=== PATIENT | female | born 1985 | race Caucasian/White ===

== ENCOUNTER 2016-06-27 10:00 | Emergency (ER) | payer OTHER ==
[2016-06-27 10:20] VITALS: RESP 18
[2016-06-27 11:39] LABS: Basophils # (A) 0.1 k/uL (0-0.2); Basophils % (A) 1 %; CH 31.9; CHCM 34.3; Eosinophils # (A) 0.2 k/uL (0-0.7); Eosinophils % (A) 1 %; HDW 2.87; HGB 14.3 gm/dL (11.4-16.0); Luc # (Auto) 0.42; Luc % (Auto) 4; Lymphocytes # (A) 2.3 k/uL (1.0-4.8); Lymphocytes % (A) 21 %; MCH 31.7 pg (25.0-35.0); MCV 93.3 fL (80.0-100.0); Mean Platelet Volume 7.8; Monocytes # (A) 0.4 k/uL (0-1.0); Monocytes % (A) 3 %; Neutrophils # (A) 7.8 k/uL (1.3-7.7); Neutrophils % (A) 70 %; RDW 14.5 % (11.5-15.5); WBC 11.1 k/uL (3.8-10.6); WBC (Perox) 11.12
[2016-06-27 11:41] LABS: ALT 36 U/L (9-52); AST 30 U/L (14-36); Acetaminophen <10.0 ug/mL; Alcohol <10 mg/dL; Alkaline Phosphatase 72 U/L (38-126); Anion Gap 15 mmol/L; Blood Urea Nitrogen 16 mg/dL (7-17); Calcium 9.9 mg/dL (8.4-10.2); Carbon Dioxide 25 mmol/L (22-30); Chloride 99 mmol/L (98-107); Glucose 134 mg/dL (74-99); Non-African American GFR(MDRD) >60 (>60 ml/min/1.73 sqM); Potassium 4.7 mmol/L (3.5-5.1); Salicylate <1.0 mg/dL; Sodium 139 mmol/L (137-145); Total Bilirubin 0.7 mg/dL (0.2-1.3); Total Protein 7.7 g/dL (6.3-8.2)
--- NOTE | 2016-06-27 18:53 | ED ---
General Adult HPI - General Chief complaint: Psychiatric Symptoms Stated complaint: MENTAL HEALTH PETITION PHP Time Seen by Provider: 06/27/16 10:13 Source: patient, police Mode of arrival: ambulatory Limitations: no limitations - History of Present Illness Initial comments: 31-year-old female presented for psych evaluation. Per the patient's mother who is wishing to petition her, the patient has not been taking her medications for some time including her metformin and other psych medications that are unknown. When she told the patient that she would need to come to the ED she became violent and started threatening to hurt both herself and her mother. Mother states that lately she has been exhibiting internal stimuli and talking to inanimate objects. She further states that she will laugh inappropriately for no apparent reason. She had previously been well controlled on Lamictal(per her mother) but was doing so well that she believes she did not need to be on medications any more. On interviewing the patient she states that she doesn't know why she is here and thinks that this is just for a physical exam, in spite of being brought in the presence of PD. - Related Data Home Medications Medication Instructions Recorded Confirmed Morphine Sulfate [Ms Contin] 30 mg PO BID 02/16/15 06/27/16 Cetirizine HCl [Zyrtec] 10 mg PO DAILY 06/27/16 06/27/16 Cholecalciferol [Vitamin D3] 1,000 unit PO DAILY 06/27/16 06/27/16 metFORMIN HCL [Glucophage] 500 mg PO BID 06/27/16 06/27/16 Allergies Allergy/AdvReac Type Severity Reaction Status Date / Time aripiprazole [From Abilify] Allergy Severe STATES Verified 02/16/15 14:42 UNABLE TO TALK OR CHEW. "SEIZED UP" latex Allergy Unknown Unknown Verified 02/16/15 14:41 Review of Systems ROS Statement: Those systems with pertinent positive or pertinent negative responses have been documented in the HPI. General: Patient denies fever, chills,nausea, or vomiting. HEENT: No visual changes. No eye pain. No nasal symptoms. No dysphagia.No odynophagia. No ENT pain. Cardiac: No chest pain. No palpitations. Pulmonary; No dyspnea. Denies cough GI: No abdominal pain. No diarrhea. No constipation. No bowel habit changes. No melena. No hematochezia. See general. : No dysuria.No hematuria. No hesitancy. No urgency. No renal lithiasis history. Musculoskeletal: No musculoskeletal pain. Orthopedic: Denies fracture history. Integumentary: Denies rash. Denies pruritis. Neurologic: Denies any lateralizing weakness. Denies numbness. Denies tingling. No seizure activity. Denies TIA or CVA. Endocrine: Denies polyuria and polydipsia Heme/Onc: Denies anemia. Denies cancer. Denies adenopathy. Psych: Thoughts of hurting others, loss of hurting self, talking to him and objects, laughing inappropriately, responding to internal stimuli. ROS Other: All systems not noted in ROS Statement are negative. Past Medical History Past Medical History: No Reported History Additional Past Medical History / Comment(s): Patient was born with one kidney History of Any Multi-Drug Resistant Organisms: None Reported Past Surgical History: Cholecystectomy, Tonsillectomy Additional Past Surgical History / Comment(s): foot surgeery which foot unknown Past Anesthesia/Blood Transfusion Reactions: No Reported Reaction Past Psychological History: Schizophrenia Additional Psychological History / Comment(s): patients father had schizophrenia. Patient has never been treated for mental illness Smoking Status: Current every day smoker Past Alcohol Use History: None Reported Past Drug Use History: None Reported Additional Drug Use History / Comment(s): per mother everything. at one point bath salts General Exam Limitations: no limitations General appearance: alert, in no apparent distress, obese Head exam: Present: atraumatic, normocephalic Eye exam: Present: normal appearance, PERRL, EOMI Pupils: Present: normal accommodation. Absent: unequal ENT exam: Present: normal exam, mucous membranes moist Neck exam: Present: normal inspection, full ROM Respiratory exam: Present: normal lung sounds bilaterally. Absent: respiratory distress, wheezes Cardiovascular Exam: Present: regular rate, normal rhythm. Absent: bradycardia , tachycardia GI/Abdominal exam: Present: soft. Absent: distended, tenderness Rectal exam: Present: deferred Extremities exam: Present: normal inspection, full ROM Back exam: Present: normal inspection, full ROM. Absent: tenderness, CVA tenderness (R) Neurological exam: Present: alert, oriented X3, CN II-XII intact. Absent: altered Psychiatric exam: Present: other (Responding to internal stimuli, inappropriate responses to questions, laughing with no apparent etiology, intermittently agitated and non-compliant with requests) Skin exam: Present: warm, dry, intact Course Vital Signs 06/27/16 06/27/16 06/27/16 10:17 14:32 17:49 Temperature 98.1 F 98.4 F Pulse Rate 117 H 98 115 H Respiratory 18 18 18 Rate Blood Pressure 174/112 145/102 163/90 O2 Sat by Pulse 97 95 94 L Oximetry EKG Findings - EKG Comments: EKG Findings:: EKG shows sinus tachycardia with a ventricular rate of 114, CHICHI 150, QRS 74, QT/QTC 334/460. Medical Decision Making - Medical Decision Making 31-year-old female with past psychiatric history including schizophrenia presenting for psych evaluation and concern of medication noncompliance per her mother. Mother noticed the patient had stopped taking her medications and was acting appropriately for some time. She tried to get her daughter to come to the ED for further evaluation and she adamantly refused and threatened to hurt her and hurt herself. At this point the mother called for police who escorted her to the ED. On arrival she is responding appropriately to questions and appears to be responding to internal stimuli. She is intermittently uncooperative with requests but is able to be calm down. She denies any attempts on her own life although per her mother she has made threats to harm herself. Mother would like to position the patient for further psych evaluation and presents with form filled out. Patient denies making any attempts on her own life and further denies any illicit drug use, alcohol abuse , or inappropriate pill administration. Patient was discussed with the behavioral health unit who evaluated the need for admission and agreed that she was not candidate for discharge and would be admitted. Due to the patient's morbid obesity she is not a candidate to be admitted to this facility. Transfer to other hospitals is pending their response of availability. Pt care turned over to overnight staff. - Lab Data Result diagrams: 06/27/16 11:05 06/27/16 11:05 Lab Results 06/27/16 06/27/16 06/27/16 Range/Units 10:25 10:25 11:05 WBC (3.8-10.6) k/uL RBC (3.80-5.40) m/uL Hgb (11.4-16.0) gm/dL Hct (34.0-46.0) % MCV (80.0-100.0) fL MCH (25.0-35.0) pg MCHC (31.0-37.0) g/dL RDW (11.5-15.5) % Plt Count (150-450) k/uL Neutrophils % % Lymphocytes % % Monocytes % % Eosinophils % % Basophils % % Neutrophils # (1.3-7.7) k/uL Lymphocytes # (1.0-4.8) k/uL Monocytes # (0-1.0) k/uL Eosinophils # (0-0.7) k/uL Basophils # (0-0.2) k/uL Sodium 139 (137-145) mmol/L Potassium 4.7 (3.5-5.1) mmol/L Chloride 99 (98-107) mmol/L Carbon Dioxide 25 (22-30) mmol/L Anion Gap 15 mmol/L BUN 16 (7-17) mg/dL Creatinine 0.69 (0.52-1.04) mg/dL Est GFR (MDRD) Af Amer >60 (>60 ml/min/1.73 sqM) Est GFR (MDRD) Non-Af >60 (>60 ml/min/1.73 sqM) Glucose 134 H (74-99) mg/dL Calcium 9.9 (8.4-10.2) mg/dL Total Bilirubin 0.7 (0.2-1.3) mg/dL AST 30 (14-36) U/L ALT 36 (9-52) U/L Alkaline Phosphatase 72 (38-126) U/L Total Protein 7.7 (6.3-8.2) g/dL Albumin 4.5 (3.5-5.0) g/dL Urine HCG, Qual Not Detected (Not Detectd) Salicylates <1.0 mg/dL Urine Opiates Screen Not Detected (NotDetected) Ur Oxycodone Screen Not Detected (NotDetected) Urine Methadone Screen Not Detected (NotDetected) Ur Propoxyphene Screen Not Detected (NotDetected) Acetaminophen <10.0 ug/mL Ur Barbiturates Screen Not Detected (NotDetected) U Tricyclic Antidepress Not Detected (NotDetected) Ur Phencyclidine Scrn Not Detected (NotDetected) Ur Amphetamines Screen Not Detected (NotDetected) U Methamphetamines Scrn Not Detected (NotDetected) U Benzodiazepines Scrn Not Detected (NotDetected) Urine Cocaine Screen Not Detected (NotDetected) U Marijuana (THC) Screen Not Detected (NotDetected) Serum Alcohol <10 mg/dL 06/27/16 Range/Units 11:05 WBC 11.1 H (3.8-10.6) k/uL RBC 4.50 (3.80-5.40) m/uL Hgb 14.3 (11.4-16.0) gm/dL Hct 42.0 (34.0-46.0) % MCV 93.3 (80.0-100.0) fL MCH 31.7 (25.0-35.0) pg MCHC 34.0 (31.0-37.0) g/dL RDW 14.5 (11.5-15.5) % Plt Count 371 (150-450) k/uL Neutrophils % 70 % Lymphocytes % 21 % Monocytes % 3 % Eosinophils % 1 % Basophils % 1 % Neutrophils # 7.8 H (1.3-7.7) k/uL Lymphocytes # 2.3 (1.0-4.8) k/uL Monocytes # 0.4 (0-1.0) k/uL Eosinophils # 0.2 (0-0.7) k/uL Basophils # 0.1 (0-0.2) k/uL Sodium (137-145) mmol/L Potassium (3.5-5.1) mmol/L Chloride (98-107) mmol/L Carbon Dioxide (22-30) mmol/L Anion Gap mmol/L BUN (7-17) mg/dL Creatinine (0.52-1.04) mg/dL Est GFR (MDRD) Af Amer (>60 ml/min/1.73 sqM) Est GFR (MDRD) Non-Af (>60 ml/min/1.73 sqM) Glucose (74-99) mg/dL Calcium (8.4-10.2) mg/dL Total Bilirubin (0.2-1.3) mg/dL AST (14-36) U/L ALT (9-52) U/L Alkaline Phosphatase (38-126) U/L Total Protein (6.3-8.2) g/dL Albumin (3.5-5.0) g/dL Urine HCG, Qual (Not Detectd) Salicylates mg/dL Urine Opiates Screen (NotDetected) Ur Oxycodone Screen (NotDetected) Urine Methadone Screen (NotDetected) Ur Propoxyphene Screen (NotDetected) Acetaminophen ug/mL Ur Barbiturates Screen (NotDetected) U Tricyclic Antidepress (NotDetected) Ur Phencyclidine Scrn (NotDetected) Ur Amphetamines Screen (NotDetected) U Methamphetamines Scrn (NotDetected) U Benzodiazepines Scrn (NotDetected) Urine Cocaine Screen (NotDetected) U Marijuana (THC) Screen (NotDetected) Serum Alcohol mg/dL Disposition Clinical Impression: Psychosis, Agitation Disposition: TRANSFER TO PSYCH HOSP/UNIT Decision to Admit Reason: Admit from EC Decision Date: 06/27/16 Decision Time: 20:21 - Out of Hospital Transfer - Req. Specs Out of Hospital Transfer - Requested Specifics: Psychiatric Non-ICU
[2016-06-27 22:57] VITALS: BP 151/81; PULSE 103; TEMP 97
== END 2016-06-27 23:18 ==
LOC: EC 10:00
DX: F29 Unspecified psychosis not due to a substance or known physiological condition (principal); R45.1 Restlessness and agitation; F20.9 Schizophrenia, unspecified; E66.01 Morbid (severe) obesity due to excess calories; F17.200 Nicotine dependence, unspecified, uncomplicated; Z91.14 Patient's other noncompliance with medication regimen; Z91.040 Latex allergy status; Z88.8 Allergy status to other drugs, medicaments and biological substances; Z79.899 Other long term (current) drug therapy; Z79.84 Long term (current) use of oral hypoglycemic drugs; Z68.44 Body mass index [BMI] 60.0-69.9, adult
CPT/HCPCS: 36415; 80053; 80306; 80320; 81025; 82075; 83520; 85025; 93005; 99284

== ENCOUNTER → 2016-09-16 | Outpatient (CLI) | payer OTHER ==
--- NOTE | 2016-09-16 09:38 | CT ---
EXAMINATION TYPE: CT chest wo con DATE OF EXAM: 09/16/2016 COMPARISON: NONE HISTORY: Patient complains of cough. Patient had abnormal CXR at doctors office. CT DLP: 3121.2 mGycm, Automated exposure control for dose reduction was used. CONTRAST: Performed injected with 0 mL of Omnipaque 300. TECHNIQUE: Axial images were obtained at 5 mm thick sections. Reconstructed images are reviewed on [facility] computer in the coronal plane. There appears to be some respiratory motion artifact present. FINDINGS: Portion of the thyroid visualized is normal. No suspicious lung nodules or focal infiltrates are present. Patient's mediastinal anatomy may be slightly distorted without underlying mass. The pulmonary artery appears to be high riding nearly the level of the aortic arch. This may be partially accounted for b ased on respiratory motion. Suspicious underlying mass is not identified. No enlarged mediastinal or hilar adenopathy is evident. The ascending aorta diameter at the level o f the main pulmonary artery is 3.1 cm. The main pulmonary artery diameter at the bifurcation is 2.[address] sections are obtained through the upper abdomen. Abdomen is essentially unremarkable. IMPRESSIONS: 1. Normal Chest CT.
== END | disposition home or self-care (01) ==
LOC: RADCTMAIN 08:08
PROVIDERS: ATTEND Family Medicine
DX: M85.9 Disorder of bone density and structure, unspecified (principal); E66.01 Morbid (severe) obesity due to excess calories; Z68.20 Body mass index [BMI] 20.0-20.9, adult
CPT/HCPCS: 71250

== ENCOUNTER 2017-02-25 10:26 | Day surgery (SDC) | payer OTHER ==
[2017-02-20 15:34] VITALS: BMI 66.2
[~2017-02-25 10:26] MED LIST: LACTATED RINGERS 1,000 ML IV SCH
[2017-02-25] MEDS ORDERED: LIDOCAINE 1% 20 ML VIAL (10MG/ML) FOR IV START INTRADERMA ONE (10:38)
[2017-02-25 10:51] VITALS: RESP 16; TEMP 97.3
[2017-02-25 10:51] LABS: Glucose,Whole Blood 126 mg/dL (75-99)
[2017-02-25] MEDS ORDERED: LIDOCAINE 1% INJ 10MG/ML (20 ML MDV) ONE (10:55)
[2017-02-25] MEDS ORDERED: PROPOFOL 10 MG/ML 20 ML VIAL IV ONE (10:55)
--- NOTE | 2017-02-25 11:06 | P.OP ---
Date of Procedure: 02/25/17 Preoperative Diagnosis: Morbid obesity GERD Postoperative Diagnosis: Antral gastritis No evidence of hiatal hernia Procedure(s) Performed: EGD Anesthesia: MAC Surgeon: Isreal Fleming Pathology: other (Antrum, esophagus) Condition: stable Disposition: PACU Description of Procedure: The patient's placed on the endoscopy table in the lateral position. She received IV sedation. The gastroscope placed oropharynx and then into the esophagus and stomach. The scope was then placed through the pylorus. The first second portion of duodenum appeared normal. Scope was then brought back the antrum and this appeared mildly inflamed. Scope was retroflexed and remainder stomach appeared normal. There is no evidence of hiatal hernia. The GE junction was at 40 cm. The distal esophagus appeared normal. The proximal esophagusAppeared Normal. Scope was withdrawn for patient.
--- NOTE | 2017-02-25 11:07 | P.GSHP ---
History of Present Illness H&P Date: 02/25/17 Chief Complaint: Morbid obesity, GERD This is a 32-year-old female who presents today for EGD. She is undergoing workup for sleeve gastrectomy. She's had some mild GERD symptoms. Her BMI is 66. Past Medical History Past Medical History: Asthma, Chest Pain / Angina, Diabetes Mellitus, Fibromyalgia, Hypertension, Osteoarthritis (OA) Additional Past Medical History / Comment(s): Patient was born with one kidney, migraines, no meds for BP, History of Any Multi-Drug Resistant Organisms: None Reported Past Surgical History: Cholecystectomy, Orthopedic Surgery, Tonsillectomy Additional Past Surgical History / Comment(s): jama foot surgery, left knee arthroscopy Past Anesthesia/Blood Transfusion Reactions: No Reported Reaction Smoking Status: Current every day smoker - Past Family History Mother Family Medical History: No Reported History Medications and Allergies Home Medications Medication Instructions Recorded Confirmed Type Cetirizine HCl [Zyrtec] 10 mg PO DAILY PRN 06/27/16 02/25/17 History metFORMIN HCL [Glucophage] 500 mg PO BID 06/27/16 02/25/17 History Acetaminophen Tab [Tylenol] 500 mg PO DIRECTED PRN 02/04/17 02/25/17 History Cyanocobalamin (Vitamin B-12) 2,500 mcg PO DAILY 02/04/17 02/25/17 History [Vitamin B12] Ergocalciferol [Vitamin D2] 50,000 unit PO MO 02/20/17 02/25/17 History Risperdal Injection 1 injection IJ Q14D 02/20/17 02/25/17 History Allergies Allergy/AdvReac Type Severity Reaction Status Date / Time aripiprazole [From Abilify] Allergy Severe STATES Verified 02/25/17 10:46 UNABLE TO TALK OR CHEW. "SEIZED UP" latex Allergy Unknown diff Verified 02/25/17 10:46 breathing Surgical - Exam Vital Signs Temp Pulse Resp BP Pulse Ox 97.3 F L 115 H 16 140/92 96 02/25/17 10:49 02/25/17 10:49 02/25/17 10:49 02/25/17 10:49 02/25/17 10:49 BMI 66 - General well developed - Eyes PERRL - ENT normal pinna - Neck no masses - Respiratory normal expansion - Cardiovascular Rhythm: regular - Abdomen Abdomen: soft, non tender Results - Labs Abnormal Lab Results - Last 24 Hours (Table) 02/25/17 Range/Units 10:49 POC Glucose (mg/dL) 126 H (75-99) mg/dL Assessment and Plan Assessment: BMI of 66, morbid obesity, GERD we'll perform EGD.
[2017-02-25 11:28] VITALS: BP 104/69; PULSE 104
== END 2017-02-25 11:45 | disposition home or self-care (01) ==
LOC: ORWHC2ENDO 10:26
PROVIDERS: ATTEND Surgery
DX: K21.9 Gastro-esophageal reflux disease without esophagitis (principal); K29.50 Unspecified chronic gastritis without bleeding; I25.10 Atherosclerotic heart disease of native coronary artery without angina pectoris; J45.909 Unspecified asthma, uncomplicated; E11.9 Type 2 diabetes mellitus without complications; M79.7 Fibromyalgia; I10 Essential (primary) hypertension; F20.9 Schizophrenia, unspecified; M19.90 Unspecified osteoarthritis, unspecified site; E66.01 Morbid (severe) obesity due to excess calories; Z68.44 Body mass index [BMI] 60.0-69.9, adult; Q60.0 Renal agenesis, unilateral; F17.200 Nicotine dependence, unspecified, uncomplicated; Z91.040 Latex allergy status; Z88.8 Allergy status to other drugs, medicaments and biological substances; Z79.84 Long term (current) use of oral hypoglycemic drugs; Z79.899 Other long term (current) drug therapy
CPT/HCPCS: 43239; 81025; 88305; 88342; J2001; J2704

== ENCOUNTER → 2017-05-19 | Outpatient (CLI) | payer OTHER ==
--- NOTE | 2017-05-20 06:46 | US ---
EXAMINATION TYPE: US extremity nonvascular ltd RT DATE OF EXAM: 05/19/2017 COMPARISON: NONE CLINICAL HISTORY: M25.561 Pain in Rt Leg. Right knee pain Right popliteal fossa: appears wnl at this time. Patent popliteal vessels are identified. No suspicious focal fluid collection to suggest mead cyst i s present. IMPRESSION: As above
== END | disposition home or self-care (01) ==
LOC: RADUSWWP 15:44
PROVIDERS: ATTEND Family Medicine
DX: M25.561 Pain in right knee (principal)

== ENCOUNTER → 2017-07-21 | Outpatient (CLI) | payer OTHER ==
[2017-07-21 15:30] VITALS: BP 168/89; PULSE 104; RESP 15; TEMP 98.2; BMI 63.5
--- NOTE | 2017-07-21 16:52 | P.HPBAR ---
Bariatric H&P - History & Physicial H&P Date: 07/21/17 History & Physicial: Visit/CC: sleeve consult Patient initial contact: Initial weight: 191.501 kg Initial weight in pounds: 422.19 Height: 5 ft 7 in Initial BMI: 66.1 Last weight: Current weight: 183.977 kg Current weight in pounds: 405.60 Current BMI: 63.5 [place] body weight (based on NIH guidelines): 61.235 kg Excess body weight loss: 5.7% The patient is a 32 year-old F who presents for Bariatric Assessment. The patient safe for her second preoperative consultation. She states she is almost ready scheduled for surgery. Her psychiatric evaluation is scheduled for the next 2 weeks. Patient has lost approximately 20 pounds since her last visit. Past Medical History Past Medical History: Asthma, Chest Pain / Angina, Diabetes Mellitus, Fibromyalgia, Hypertension, Osteoarthritis (OA) Additional Past Medical History / Comment(s): Patient was born with one kidney, migraines, no meds for BP, History of Any Multi-Drug Resistant Organisms: None Reported Past Surgical History: Cholecystectomy, Orthopedic Surgery, Tonsillectomy Additional Past Surgical History / Comment(s): jama foot surgery, left knee arthroscopy Past Anesthesia/Blood Transfusion Reactions: No Reported Reaction Past Psychological History: Anxiety, Schizophrenia Additional Psychological History / Comment(s): paranoia Smoking Status: Current every day smoker Past Alcohol Use History: None Reported Additional Past Alcohol Use History / Comment(s): smokes 1-2 PPD, started smoking age 16 Past Drug Use History: None Reported Additional Drug Use History / Comment(s): . - Past Family History Mother Family Medical History: No Reported History Surgical - Exam Vital Signs Temp Pulse Resp BP 98.2 F 104 H 15 168/89 07/21/17 15:05 07/21/17 15:05 07/21/17 15:05 07/21/17 15:05 - General well developed, no distress - Eyes PERRL - ENT normal pinna - Neck no masses - Respiratory normal expansion - Cardiovascular Rhythm: regular - Abdomen Abdomen: soft, non tender Bariatric Assessment & Plan Plan: Morbid obesity, GERD Patient seems a good understanding sleeve gastrectomy. We went over the risks and benefits of procedure again including gastric staple line bleeding, perforation or scarring. Patient will be scheduled for laparoscopic sleeve gastrectomy when she obtains insurance authorization. Bariatric Checklist Checklist: Plan: Checklist: EGD: 1. Hiatal hernia: 2. H. Pylori: HgbA1c: Vitamin D: Smoking: Current every day smoker Primary care physician referral: Husam ([address] [place] [address]) Psychiatry clearance: Cardiology clearance: Sleep study: Diet journal: VTE risk score: VTE risk level: Rehab needs at discharge:
== END | disposition home or self-care (01) ==
LOC: BARWHC3 14:29
PROVIDERS: ATTEND Surgery
DX: E66.01 Morbid (severe) obesity due to excess calories (principal); K21.9 Gastro-esophageal reflux disease without esophagitis; J45.909 Unspecified asthma, uncomplicated; E11.9 Type 2 diabetes mellitus without complications; I10 Essential (primary) hypertension; M19.90 Unspecified osteoarthritis, unspecified site; Q60.0 Renal agenesis, unilateral; F41.9 Anxiety disorder, unspecified; F20.9 Schizophrenia, unspecified; F17.200 Nicotine dependence, unspecified, uncomplicated; Z90.49 Acquired absence of other specified parts of digestive tract; Z68.44 Body mass index [BMI] 60.0-69.9, adult; Z98.890 Other specified postprocedural states
CPT/HCPCS: 99211

== ENCOUNTER → 2017-09-08 | Outpatient (CLI) | payer OTHER ==
[2017-09-08 14:34] VITALS: BP 158/90; PULSE 98; RESP 16; TEMP 97.9; BMI 65.2
--- NOTE | 2017-09-08 16:22 | P.HPBAR ---
Bariatric H&P - History & Physicial H&P Date: 09/08/17 History & Physicial: Visit/CC: working on criteria Patient initial contact: Initial weight: 191.501 kg Initial weight in pounds: 422.19 Height: 5 ft 7 in Initial BMI: 66.1 Last weight: Current weight: 189.148 kg Current weight in pounds: 417.00 Current BMI: 65.2 [place] body weight (based on NIH guidelines): 61.235 kg Excess body weight loss: 1.8% The patient is a 32 year-old F who presents for Bariatric Assessment. Patient presents for presurgical consultation. She is awaiting preauthorization. She still has her psych evaluation pending. She is morbidly obese with BMI 65. Past Medical History Past Medical History: Asthma, Chest Pain / Angina, Diabetes Mellitus, Fibromyalgia, Hypertension, Osteoarthritis (OA) Additional Past Medical History / Comment(s): Patient was born with one kidney, migraines, no meds for BP, History of Any Multi-Drug Resistant Organisms: None Reported Past Surgical History: Cholecystectomy, Orthopedic Surgery, Tonsillectomy Additional Past Surgical History / Comment(s): jama foot surgery, left knee arthroscopy Past Anesthesia/Blood Transfusion Reactions: No Reported Reaction Past Psychological History: Anxiety, Schizophrenia Additional Psychological History / Comment(s): paranoia Smoking Status: Current every day smoker Past Alcohol Use History: None Reported Additional Past Alcohol Use History / Comment(s): smokes 1-2 PPD, started smoking age 16 Past Drug Use History: None Reported Additional Drug Use History / Comment(s): . - Past Family History Mother Family Medical History: No Reported History Surgical - Exam Vital Signs Temp Pulse Resp BP 97.9 F 98 16 158/90 09/08/17 14:29 09/08/17 14:29 09/08/17 14:29 09/08/17 14:29 - General well developed, well nourished, no distress - Abdomen Abdomen: soft, non tender Bariatric Assessment & Plan Plan: Morbid obesity BMI 65. Patient will be scheduled for sleeve gastrectomy once her insurance authorization has been performed. Bariatric Checklist Checklist: Plan: Checklist: EGD: 1. Hiatal hernia: 2. H. Pylori: HgbA1c: Vitamin D: Smoking: Current every day smoker Primary care physician referral: Husam ([address] [place] [address]) Psychiatry clearance: Cardiology clearance: Sleep study: Diet journal: VTE risk score: VTE risk level: Rehab needs at discharge:
== END | disposition home or self-care (01) ==
LOC: BARWHC3 13:15
PROVIDERS: ATTEND Surgery
DX: E66.01 Morbid (severe) obesity due to excess calories (principal); E11.9 Type 2 diabetes mellitus without complications; J45.909 Unspecified asthma, uncomplicated; M79.7 Fibromyalgia; I10 Essential (primary) hypertension; F17.200 Nicotine dependence, unspecified, uncomplicated; F41.9 Anxiety disorder, unspecified; F20.9 Schizophrenia, unspecified; M19.90 Unspecified osteoarthritis, unspecified site; Q60.0 Renal agenesis, unilateral; Z90.49 Acquired absence of other specified parts of digestive tract; Z68.44 Body mass index [BMI] 60.0-69.9, adult; Z98.890 Other specified postprocedural states
CPT/HCPCS: G0480; G0463; 80307; 80323; 80356; 99211

== ENCOUNTER 2018-06-30 21:52 | Emergency (ER) | payer OTHER ==
--- NOTE | 2018-06-30 22:14 | ED ---
Psych HPI - General Chief Complaint: Psychiatric Symptoms Stated Complaint: reaction to mental health meds,back and chest pain Time Seen by Provider: 06/30/18 22:12 Source: patient Mode of arrival: wheelchair - History of Present Illness Initial Comments: Yarelis is a morbidly obese 33-year-old female with history of psychiatric illness is brought to the ED today for evaluation of anxiety, possible hallucinations and concern that she is reacting to her Risperdal. Patient reports she's been on Risperdal injections for urinary calf, she does admit that she was late getting her last injection but she did get it. She reports that she feels the Risperdal is making her gain weight and she feels that this is a adverse reaction. Patient also states that over the past couple days she believes she is hallucinating. She states that she is seeing somebody who looks like Odilon from the hormone be walking around her home. She believes there is somebody in her home. She feels very paranoid and unsafe. also states that she's not taken any of her insulin today and is unsure what her sugar is. - Related Data Home Medications Medication Instructions Recorded Confirmed Acetaminophen Tab [Tylenol] 500 mg PO Q6H PRN 02/04/17 06/30/18 Ascorbic Acid [Vitamin C] 500 mg PO BID 06/30/18 06/30/18 Budesonide [Pulmicort] 0.25 mg INHALATION RT-BID 06/30/18 06/30/18 Folic Acid 0.4 mg PO DAILY 06/30/18 06/30/18 Ipratropium-Albuterol Nebulize 3 ml INHALATION RT-QID PRN 06/30/18 06/30/18 [Duoneb 0.5 mg-3 mg/3 ml Soln] Losartan Potassium 100 mg PO DAILY 06/30/18 06/30/18 Magnesium(Unknown) 1 tab PO DAILY 06/30/18 06/30/18 Methocarbamol [Robaxin] 500 mg PO TID 06/30/18 06/30/18 Metoprolol Tartrate [Lopressor] 25 mg PO TID 06/30/18 06/30/18 Montelukast [Singulair] 10 mg PO HS 06/30/18 06/30/18 Promethazine 6.25MG/5Ml [Phenergan 6.25 mg PO Q8H PRN 06/30/18 06/30/18 Syrup] Triamcinolone 0.1% Cream [Kenalog 1 applic TOPICAL BID 06/30/18 06/30/18 0.1% Cream] glipiZIDE [Glucotrol] 5 mg PO TID 06/30/18 06/30/18 metFORMIN HCL 850 mg PO BID 06/30/18 06/30/18 risperiDONE MICROSPHERES 50 mg IM Q14D 06/30/18 06/30/18 [RisperDAL CONSTA] Allergies Allergy/AdvReac Type Severity Reaction Status Date / Time aripiprazole [From [facility]] Allergy Severe STATES Verified 06/30/18 22:36 UNABLE TO TALK OR CHEW. "SEIZED UP" latex Allergy Unknown diff Verified 06/30/18 22:36 breathing Review of Systems ROS Statement: Those systems with pertinent positive or pertinent negative responses have been documented in the HPI. ROS Other: All systems not noted in ROS Statement are negative. Past Medical History Past Medical History: Asthma, Chest Pain / Angina, Diabetes Mellitus, Fibromyalgia, Hypertension, Osteoarthritis (OA), Sleep Apnea/CPAP/BIPAP Additional Past Medical History / Comment(s): Patient was born with one kidney, migraines, no meds for BP, History of Any Multi-Drug Resistant Organisms: None Reported, C-DIFF Date of last positivie culture/infection: 2018 Past Surgical History: Cholecystectomy, Orthopedic Surgery, Tonsillectomy, Tubal Ligation Additional Past Surgical History / Comment(s): jama foot surgery, left knee arthroscopy, Past Anesthesia/Blood Transfusion Reactions: No Reported Reaction Past Psychological History: Anxiety, Schizophrenia Smoking Status: Current every day smoker Past Alcohol Use History: None Reported Past Drug Use History: None Reported - Past Family History Mother Family Medical History: No Reported History General Exam - General Exam Comments Initial Comments: Physical Exam GENERAL: Morbidly obese female, appears anxious, is hesitant with any interaction Patient has red glitter on her face HENT: Normocephalic, Atraumatic. EYES: PERRL, EOMI PULMONARY: Unlabored respirations. No audible rales rhonchi or wheezing was noted. CARDIOVASCULAR: There is a regular rate and rhythm without any murmurs gallops or rubs. ABDOMEN: Soft and nontender with normal bowel sounds. SKIN: Skin is clear with no lesions or rashes and otherwise unremarkable. : Deferred NEUROLOGIC: Patient is alert and oriented x3. Moving all extremities spontaneously MUSCULOSKELETAL: Normal extremities with adequate strength and full range of motion. No lower extremity swelling or edema. No calf tenderness. PSYCHIATRIC: Anxious, hesitant in interactions Denies SI/HI Limitations: no limitations Limitations: no limitations Course Vital Signs 06/30/18 07/01/18 21:59 01:22 Temperature 98.6 F Pulse Rate 125 H 111 H Respiratory 18 20 Rate Blood Pressure 139/72 118/68 O2 Sat by Pulse 95 95 Oximetry Medical Decision Making - Medical Decision Making Patient was seen and evaluated history was obtained from the patient and review of medical records this is a morbidly obese 33-year-old female with psychiatric history who is concerned that her psychiatric meds her causing her to gain weight and is also leaves that she is currently hallucinating Patient medically cleared for evaluation by EPS Patient was evaluated by EPS who noted that the patient is open with [facility] and does have follow-up. Decision was made that the patient is stable for discharge home with close outpatient follow-up. Patient requested not to be discharged during the night as she is scared but are consistent with to go home once day light. Patient was advised she can wait in our waiting room for sunrise and get a taxi home at that time. - Lab Data Result diagrams: 06/30/18 22:34 06/30/18 22:34 Lab Results 06/30/18 06/30/18 06/30/18 Range/Units 22:34 22:34 22:34 WBC 8.4 (3.8-10.6) k/uL RBC 4.18 (3.80-5.40) m/uL Hgb 12.3 (11.4-16.0) gm/dL Hct 39.3 (34.0-46.0) % MCV 93.9 (80.0-100.0) fL MCH 29.5 (25.0-35.0) pg MCHC 31.4 (31.0-37.0) g/dL RDW 16.1 H (11.5-15.5) % Plt Count 209 (150-450) k/uL Neutrophils % 59 % Lymphocytes % 33 % Monocytes % 3 % Eosinophils % 2 % Basophils % 1 % Neutrophils # 5.0 (1.3-7.7) k/uL Lymphocytes # 2.8 (1.0-4.8) k/uL Monocytes # 0.3 (0-1.0) k/uL Eosinophils # 0.2 (0-0.7) k/uL Basophils # 0.0 (0-0.2) k/uL Anisocytosis Slight Sodium 137 (137-145) mmol/L Potassium 4.1 (3.5-5.1) mmol/L Chloride 101 (98-107) mmol/L Carbon Dioxide 26 (22-30) mmol/L Anion Gap 10 mmol/L BUN 14 (7-17) mg/dL Creatinine 0.60 (0.52-1.04) mg/dL Est GFR (CKD-EPI)AfAm >90 (>60 ml/min/1.73 sqM) Est GFR (CKD-EPI)NonAf >90 (>60 ml/min/1.73 sqM) Glucose 234 H (74-99) mg/dL POC Glucose (mg/dL) (75-99) mg/dL POC Glu Mac Artist ID Calcium 9.1 (8.4-10.2) mg/dL Total Bilirubin 0.6 (0.2-1.3) mg/dL AST 36 (14-36) U/L ALT 40 (9-52) U/L Alkaline Phosphatase 58 (38-126) U/L Total Protein 6.2 L (6.3-8.2) g/dL Albumin 3.7 (3.5-5.0) g/dL TSH 2.990 (0.465-4.680) mIU/L Urine Color Yellow Urine Appearance Clear (Clear) Urine pH 6.0 (5.0-8.0) Ur Specific [place] 1.016 (1.001-1.035) Urine Protein 3+ H (Negative) Urine Glucose (UA) 1+ H (Negative) Urine Ketones Negative (Negative) Urine Blood Negative (Negative) Urine Nitrite Negative (Negative) Urine Bilirubin Negative (Negative) Urine Urobilinogen <2.0 (<2.0) mg/dL Ur Leukocyte Esterase Negative (Negative) Urine RBC 4 (0-5) /hpf Urine WBC 1 (0-5) /hpf Ur Squamous Epith Cells 1 (0-4) /hpf Urine Mucus Rare H (None) /hpf Urine HCG, Qual (Not Detectd) Urine Opiates Screen Not Detected (NotDetected) Ur Oxycodone Screen Not Detected (NotDetected) Urine Methadone Screen Not Detected (NotDetected) Ur Propoxyphene Screen Not Detected (NotDetected) Ur Barbiturates Screen Not Detected (NotDetected) U Tricyclic Antidepress Not Detected (NotDetected) Ur Phencyclidine Scrn Not Detected (NotDetected) Ur Amphetamines Screen Not Detected (NotDetected) U Methamphetamines Scrn Not Detected (NotDetected) U Benzodiazepines Scrn Not Detected (NotDetected) Urine Cocaine Screen Not Detected (NotDetected) U Marijuana (THC) Screen Not Detected (NotDetected) 06/30/18 07/01/18 Range/Units 22:34 02:23 WBC (3.8-10.6) k/uL RBC (3.80-5.40) m/uL Hgb (11.4-16.0) gm/dL Hct (34.0-46.0) % MCV (80.0-100.0) fL MCH (25.0-35.0) pg MCHC (31.0-37.0) g/dL RDW (11.5-15.5) % Plt Count (150-450) k/uL Neutrophils % % Lymphocytes % % Monocytes % % Eosinophils % % Basophils % % Neutrophils # (1.3-7.7) k/uL Lymphocytes # (1.0-4.8) k/uL Monocytes # (0-1.0) k/uL Eosinophils # (0-0.7) k/uL Basophils # (0-0.2) k/uL Anisocytosis Sodium (137-145) mmol/L Potassium (3.5-5.1) mmol/L Chloride (98-107) mmol/L Carbon Dioxide (22-30) mmol/L Anion Gap mmol/L BUN (7-17) mg/dL Creatinine (0.52-1.04) mg/dL Est GFR (CKD-EPI)AfAm (>60 ml/min/1.73 sqM) Est GFR (CKD-EPI)NonAf (>60 ml/min/1.73 sqM) Glucose (74-99) mg/dL POC Glucose (mg/dL) 176 H (75-99) mg/dL POC Glu Mac Artist ID Jasmina Gramajo Calcium (8.4-10.2) mg/dL Total Bilirubin (0.2-1.3) mg/dL AST (14-36) U/L ALT (9-52) U/L Alkaline Phosphatase (38-126) U/L Total Protein (6.3-8.2) g/dL Albumin (3.5-5.0) g/dL TSH (0.465-4.680) mIU/L Urine Color Urine Appearance (Clear) Urine pH (5.0-8.0) Ur Specific [place] (1.001-1.035) Urine Protein (Negative) Urine Glucose (UA) (Negative) Urine Ketones (Negative) Urine Blood (Negative) Urine Nitrite (Negative) Urine Bilirubin (Negative) Urine Urobilinogen (<2.0) mg/dL Ur Leukocyte Esterase (Negative) Urine RBC (0-5) /hpf Urine WBC (0-5) /hpf Ur Squamous Epith Cells (0-4) /hpf Urine Mucus (None) /hpf Urine HCG, Qual Not Detected (Not Detectd) Urine Opiates Screen (NotDetected) Ur Oxycodone Screen (NotDetected) Urine Methadone Screen (NotDetected) Ur Propoxyphene Screen (NotDetected) Ur Barbiturates Screen (NotDetected) U Tricyclic Antidepress (NotDetected) Ur Phencyclidine Scrn (NotDetected) Ur Amphetamines Screen (NotDetected) U Methamphetamines Scrn (NotDetected) U Benzodiazepines Scrn (NotDetected) Urine Cocaine Screen (NotDetected) U Marijuana (THC) Screen (NotDetected) Disposition Clinical Impression: Acute anxiety Disposition: HOME SELF-CARE Condition: Stable Instructions (If sedation given, give patient instructions): Anxiety (ED) Additional Instructions: Follow up with [facility] later today for follow up Is patient prescribed a controlled substance at d/c from ED?: No Referrals: Janki Weiner MD [Primary Care Provider] - 1-2 days
[2018-06-30 22:53] LABS: Anisocytosis Slight; Basophils % (A) 1 %; Eosinophils # (A) 0.2 k/uL (0-0.7); Eosinophils % (A) 2 %; HCT 39.3 % (34.0-46.0); HGB 12.3 gm/dL (11.4-16.0); Lymphocytes # (A) 2.8 k/uL (1.0-4.8); Lymphocytes % (A) 33 %; MCH 29.5 pg (25.0-35.0); MCHC 31.4 g/dL (31.0-37.0); MCV 93.9 fL (80.0-100.0); Mean Platelet Volume 7.3; Monocytes # (A) 0.3 k/uL (0-1.0); Monocytes % (A) 3 %; Neutrophils % (A) 59 %; Platelet Count 209 k/uL (150-450); RBC 4.18 m/uL (3.80-5.40); RDW 16.1 % (11.5-15.5); WBC 8.4 k/uL (3.8-10.6)
[2018-06-30 22:59] LABS: ALT 40 U/L (9-52); AST 36 U/L (14-36); Albumin 3.7 g/dL (3.5-5.0); Alkaline Phosphatase 58 U/L (38-126); Anion Gap 10 mmol/L; Blood Urea Nitrogen 14 mg/dL (7-17); Calcium 9.1 mg/dL (8.4-10.2); Carbon Dioxide 26 mmol/L (22-30); Chloride 101 mmol/L (98-107); Glucose 234 mg/dL (74-99); Potassium 4.1 mmol/L (3.5-5.1); Sodium 137 mmol/L (137-145); Total Bilirubin 0.6 mg/dL (0.2-1.3); Total Protein 6.2 g/dL (6.3-8.2)
[2018-06-30 23:02] LABS: Appearance,Urine Clear (Clear); Bilirubin,Urine Negative (Negative); Blood,Urine Negative (Negative); Color,Urine Yellow; Glucose,Urine (UA) 1+ (Negative); Ketones,Urine Negative (Negative); Leukocyte Esterase,Urine Negative (Negative); Mucus,Urine Rare /hpf; Nitrite,Urine Negative (Negative); Protein,Urine 3+ (Negative); RBC,Urine 4 /hpf (0-5); Specific Gravity,Urine 1.016 (1.001-1.035); Squamous Epithelial Cell,Urine 1 /hpf (0-4); Urobilinogen,Urine <2.0 mg/dL (<2.0); WBC,Urine 1 /hpf (0-5)
[2018-06-30 23:03] LABS: Amphetamine Screen,Urine Not Detected (NotDetected); Barbiturate Screen,Urine Not Detected (NotDetected); Benzodiazepines Screen,Urine Not Detected (NotDetected); Cocaine Screen,Urine Not Detected (NotDetected); Methadone Screen, Urine Not Detected (NotDetected); Opiate Screen,Urine Not Detected (NotDetected); Oxycodone Screen, Urine Not Detected (NotDetected); Phencyclidine Screen,Urine Not Detected (NotDetected); Tricyclic Antidepressant,Urine Not Detected (NotDetected); Urn Cannabinoid Scrn Not Detected (NotDetected)
[2018-07-01] MEDS ORDERED: ALPRAZolam 1 MG TAB PO STA (01:56)
[2018-07-01] MEDS ORDERED: ACETAMINOPHEN TAB 325 MG TAB PO STA (02:23)
[2018-07-01 02:25] LABS: Glucose,Whole Blood 176 mg/dL (75-99)
[2018-07-01] MEDS ORDERED: INSULIN ASPART (NovoLOG) 100 UNIT/ML VIAL SQ ONE (02:26)
[2018-07-01 06:11] VITALS: BP 115/69; PULSE 123; RESP 18; TEMP 98
[2018-07-01] MEDS ORDERED: INSULIN ASPART (NovoLOG) 100 UNIT/ML VIAL SQ SCH (07:30)
== END 2018-07-01 06:08 | disposition home or self-care (01) ==
LOC: EC 21:52
DX: F41.9 Anxiety disorder, unspecified (principal); J45.909 Unspecified asthma, uncomplicated; I20.9 Angina pectoris, unspecified; E11.9 Type 2 diabetes mellitus without complications; I10 Essential (primary) hypertension; G47.30 Sleep apnea, unspecified; F20.9 Schizophrenia, unspecified; R07.9 Chest pain, unspecified; M54.9 Dorsalgia, unspecified; R44.3 Hallucinations, unspecified; E66.01 Morbid (severe) obesity due to excess calories; F17.200 Nicotine dependence, unspecified, uncomplicated; Z99.89 Dependence on other enabling machines and devices; Z68.44 Body mass index [BMI] 60.0-69.9, adult; Z86.69 Personal history of other diseases of the nervous system and sense organs; Z98.51 Tubal ligation status; Z90.49 Acquired absence of other specified parts of digestive tract; Z98.890 Other specified postprocedural states; Z79.51 Long term (current) use of inhaled steroids; Z79.84 Long term (current) use of oral hypoglycemic drugs; Z79.899 Other long term (current) drug therapy; Z88.8 Allergy status to other drugs, medicaments and biological substances; Z91.040 Latex allergy status
CPT/HCPCS: 36415; 80053; 80306; 81001; 81025; 82075; 84443; 85025; 99285

== ENCOUNTER 2018-08-15 17:36 | Emergency (ER) | payer OTHER ==
[2018-08-15] MEDS ORDERED: SODIUM CHLORIDE 0.9% 1,000 ML IV STA (17:49)
[2018-08-15] MEDS ORDERED: MORPHINE SULFATE 4 MG/ML SYRINGE IV STA (17:49)
[2018-08-15 18:15] LABS: Anisocytosis Slight; Basophils # (A) 0.1 k/uL (0-0.2); Basophils % (A) 1 %; Eosinophils # (A) 0.3 k/uL (0-0.7); Eosinophils % (A) 2 %; HCT 42.6 % (34.0-46.0); HGB 13.8 gm/dL (11.4-16.0); Lymphocytes # (A) 3.3 k/uL (1.0-4.8); Lymphocytes % (A) 25 %; MCHC 32.4 g/dL (31.0-37.0); Macrocytosis Slight; Mean Platelet Volume 7.1; Monocytes # (A) 0.4 k/uL (0-1.0); Monocytes % (A) 3 %; Neutrophils # (A) 8.8 k/uL (1.3-7.7); Neutrophils % (A) 68 %; RBC 4.31 m/uL (3.80-5.40); RDW 16.1 % (11.5-15.5); WBC 12.9 k/uL (3.8-10.6)
--- NOTE | 2018-08-15 18:15 | ED ---
Abdominal Pain HPI - General Source: patient Mode of arrival: ambulatory Limitations: no limitations <Mary Kaur - Last Filed: 08/15/18 19:56> <Cesia Solorio - Last Filed: 08/16/18 04:05> - General Chief Complaint: Abdominal Pain Stated Complaint: abdominal pain Time Seen by Provider: 08/15/18 17:47 - History of Present Illness Initial Comments: 33-year-old female presenting today for chief complaint abdominal pain. Patient states she has had abdominal pain since yesterday she states that it was on and off. She states it increased 1 hour prior to arrival. Patient's history of diabetes, hypertension. She is morbidly obese. Patient states she also feels as though she has vaginal fullness. Patient denies diarrhea or vomiting chest pain shortness of breath that shortness of breath exertion. Patient denies any current nausea she denies any dysuria urgency frequency or hematuria. Patient denies radiation of the pain she denies back pain. Remaining review of systems negative upon arrival patient appears uncomfortable. HR elevated. Afebrile. LMAP 07/31/28. Denies vaginal bleeding or discharge, hx of vaginitis. (Mary Kaur) - Related Data Home Medications Medication Instructions Recorded Confirmed Acetaminophen Tab [Tylenol] 500 mg PO Q6H PRN 02/04/17 06/30/18 Ascorbic Acid [Vitamin C] 500 mg PO BID 06/30/18 06/30/18 Budesonide [Pulmicort] 0.25 mg INHALATION RT-BID 06/30/18 06/30/18 Folic Acid 0.4 mg PO DAILY 06/30/18 06/30/18 Ipratropium-Albuterol Nebulize 3 ml INHALATION RT-QID PRN 06/30/18 06/30/18 [Duoneb 0.5 mg-3 mg/3 ml Soln] Losartan Potassium 100 mg PO DAILY 06/30/18 06/30/18 Magnesium(Unknown) 1 tab PO DAILY 06/30/18 06/30/18 Methocarbamol [Robaxin] 500 mg PO TID 06/30/18 06/30/18 Metoprolol Tartrate [Lopressor] 25 mg PO TID 06/30/18 06/30/18 Montelukast [Singulair] 10 mg PO HS 06/30/18 06/30/18 Promethazine 6.25MG/5Ml [Phenergan 6.25 mg PO Q8H PRN 06/30/18 06/30/18 Syrup] Triamcinolone 0.1% Cream [Kenalog 1 applic TOPICAL BID 06/30/18 06/30/18 0.1% Cream] glipiZIDE [Glucotrol] 5 mg PO TID 06/30/18 06/30/18 metFORMIN HCL 850 mg PO BID 06/30/18 06/30/18 risperiDONE MICROSPHERES 50 mg IM Q14D 06/30/18 06/30/18 [RisperDAL CONSTA] Allergies Allergy/AdvReac Type Severity Reaction Status Date / Time aripiprazole [From [facility]] Allergy Severe STATES Verified 08/15/18 17:43 UNABLE TO TALK OR CHEW. "SEIZED UP" latex Allergy Unknown diff Verified 08/15/18 17:43 breathing Review of Systems ROS Other: All systems not noted in ROS Statement are negative. <Mary Kaur - Last Filed: 08/15/18 19:56> ROS Other: All systems not noted in ROS Statement are negative. <Cesia Solorio - Last Filed: 08/16/18 04:05> ROS Statement: Those systems with pertinent positive or pertinent negative responses have been documented in the HPI. Past Medical History Past Medical History: Asthma, Chest Pain / Angina, Diabetes Mellitus, Fibromyalgia, Hypertension, Osteoarthritis (OA), Sleep Apnea/CPAP/BIPAP Additional Past Medical History / Comment(s): Patient was born with one kidney, migraines, no meds for BP, morbid obesity History of Any Multi-Drug Resistant Organisms: None Reported, C-DIFF Date of last positivie culture/infection: 2018 Past Surgical History: Cholecystectomy, Orthopedic Surgery, Tonsillectomy, Tubal Ligation Additional Past Surgical History / Comment(s): jama foot surgery, left knee arthroscopy, Past Anesthesia/Blood Transfusion Reactions: No Reported Reaction Past Psychological History: Anxiety, Schizophrenia Smoking Status: Current every day smoker Past Alcohol Use History: None Reported Past Drug Use History: None Reported - Past Family History Mother Family Medical History: No Reported History <Mary Kaur - Last Filed: 08/15/18 19:56> General Exam Limitations: no limitations <Mary Kaur - Last Filed: 08/15/18 19:56> - General Exam Comments Initial Comments: General: The patient is awake and alert, pt appears uncomfortable Eye: +3 mm pupils are equal, round and reactive to light, extra-ocular movements are intact. No nystagmus. There is normal conjunctiva bilaterally. No signs of icterus. Ears, nose, mouth and throat: There are moist mucous membranes and no oral lesions. Neck: The neck is supple, there is no tenderness or JVD. Cardiovascular: There is a regular rate and rhythm. No murmur, rub or gallop is appreciated. Respiratory: Lungs are clear to auscultation, respirations are non-labored, breath sounds are equal. No wheezes, stridor, rales, or rhonchi. Gastrointestinal: Soft, non-distended, overly obese diffusely -tender abdomen without masses or organomegaly noted. There is no rebound or guarding present. No CVA tenderness. Bowel sounds are unremarkable. Musculoskeletal: Normal ROM, no tenderness. Strength 5/5. Sensation intact. Radial pulses equal bilaterally 2+. Neurological: A&O x 3. CN II-XII intact, There are no obvious motor or sensory deficits. Coordination appears grossly intact. Speech is normal. Skin: Skin is warm and dry and no rashes or lesions are noted. Psychiatric: Cooperative, appropriate mood & affect, normal judgment. (Mary Kaur) Course Vital Signs 08/15/18 08/15/18 08/15/18 17:38 19:58 20:10 Temperature 98.2 F Pulse Rate 110 H Respiratory 20 Rate Blood Pressure 173/102 138/89 149/78 O2 Sat by Pulse 90 L Oximetry 08/15/18 08/15/18 08/15/18 20:40 21:10 21:40 Temperature Pulse Rate Respiratory Rate Blood Pressure 118/94 160/89 137/90 O2 Sat by Pulse Oximetry 08/15/18 08/15/18 08/15/18 22:00 22:10 22:37 Temperature 98.3 F Pulse Rate 99 Respiratory 16 Rate Blood Pressure 137/90 130/75 O2 Sat by Pulse Oximetry Medical Decision Making - Lab Data Result diagrams: 08/15/18 18:04 08/15/18 18:04 <Mary Kaur - Last Filed: 08/15/18 19:56> - Differential Diagnosis Abdominal pain, vaginal pain, vaginitis, leukocytosis - Lab Data Result diagrams: 08/15/18 18:04 08/15/18 18:04 - Radiology Data Radiology results: report reviewed <Cesia Solorio - Last Filed: 08/16/18 04:05> - Medical Decision Making The patient was placed into room 16. We did discussed the diagnosis, differential and treatment options. Laboratory studies were conducted. The patient provided a urine sample. We did recommend a pelvic ultrasound and a CT the patient's abdomen and pelvis. The results of the blood work are reviewed and discussed. She is sent for a pelvic ultrasound however both ovaries are unable to be visualized. The patient does go for CT however does refuse once she gets to the CT suite. She is returned back to her room. I did discuss with the patient that I would like to get imaging of her abdomen due to report of pain. She states that she would like to go home at this time. I discussed the risks of not completing the study or with the inadequate results of the ultrasound. The patient understood and is able to recite the risks back to me. She continues to request to leave. Does have capacity to make her own decisions at this time. I did discuss with her that I will have her leave AGAINST MEDICAL ADVICE for which she understood. She needs to follow-up with her doctor on Friday. Should she have any new or worsening symptoms, she should return to the emergency department sooner. The patient was then discharged AGAINST MEDICAL ADVICE. (Cesia Solorio) - Lab Data Lab Results 08/15/18 08/15/18 08/15/18 Range/Units 18:04 18:04 19:37 WBC 12.9 H (3.8-10.6) k/uL RBC 4.31 (3.80-5.40) m/uL Hgb 13.8 (11.4-16.0) gm/dL Hct 42.6 (34.0-46.0) % MCV 98.9 D (80.0-100.0) fL MCH 32.0 (25.0-35.0) pg MCHC 32.4 (31.0-37.0) g/dL RDW 16.1 H (11.5-15.5) % Plt Count 437 D (150-450) k/uL Neutrophils % 68 % Lymphocytes % 25 % Monocytes % 3 % Eosinophils % 2 % Basophils % 1 % Neutrophils # 8.8 H (1.3-7.7) k/uL Lymphocytes # 3.3 (1.0-4.8) k/uL Monocytes # 0.4 (0-1.0) k/uL Eosinophils # 0.3 (0-0.7) k/uL Basophils # 0.1 (0-0.2) k/uL Anisocytosis Slight Macrocytosis Slight Sodium 138 (137-145) mmol/L Potassium 4.8 (3.5-5.1) mmol/L Chloride 96 L (98-107) mmol/L Carbon Dioxide 36 H (22-30) mmol/L Anion Gap 6 mmol/L BUN 12 (7-17) mg/dL Creatinine 0.56 (0.52-1.04) mg/dL Est GFR (CKD-EPI)AfAm >90 (>60 ml/min/1.73 sqM) Est GFR (CKD-EPI)NonAf >90 (>60 ml/min/1.73 sqM) Glucose 205 H (74-99) mg/dL Calcium 9.6 (8.4-10.2) mg/dL Total Bilirubin 0.5 (0.2-1.3) mg/dL AST 25 (14-36) U/L ALT 27 (9-52) U/L Alkaline Phosphatase 81 (38-126) U/L Total Protein 6.7 (6.3-8.2) g/dL Albumin 4.0 (3.5-5.0) g/dL Amylase 59 (30-110) U/L Lipase 307 H (23-300) U/L Urine Color Urine Appearance (Clear) Urine pH (5.0-8.0) Ur Specific [place] (1.001-1.035) Urine Protein (Negative) Urine Glucose (UA) (Negative) Urine Ketones (Negative) Urine Blood (Negative) Urine Nitrite (Negative) Urine Bilirubin (Negative) Urine Urobilinogen (<2.0) mg/dL Ur Leukocyte Esterase (Negative) Urine RBC (0-5) /hpf Urine WBC (0-5) /hpf Ur Squamous Epith Cells (0-4) /hpf Urine Mucus (None) /hpf Urine HCG, Qual Not Detected (Not Detectd) 08/15/18 Range/Units 19:37 WBC (3.8-10.6) k/uL RBC (3.80-5.40) m/uL Hgb (11.4-16.0) gm/dL Hct (34.0-46.0) % MCV (80.0-100.0) fL MCH (25.0-35.0) pg MCHC (31.0-37.0) g/dL RDW (11.5-15.5) % Plt Count (150-450) k/uL Neutrophils % % Lymphocytes % % Monocytes % % Eosinophils % % Basophils % % Neutrophils # (1.3-7.7) k/uL Lymphocytes # (1.0-4.8) k/uL Monocytes # (0-1.0) k/uL Eosinophils # (0-0.7) k/uL Basophils # (0-0.2) k/uL Anisocytosis Macrocytosis Sodium (137-145) mmol/L Potassium (3.5-5.1) mmol/L Chloride (98-107) mmol/L Carbon Dioxide (22-30) mmol/L Anion Gap mmol/L BUN (7-17) mg/dL Creatinine (0.52-1.04) mg/dL Est GFR (CKD-EPI)AfAm (>60 ml/min/1.73 sqM) Est GFR (CKD-EPI)NonAf (>60 ml/min/1.73 sqM) Glucose (74-99) mg/dL Calcium (8.4-10.2) mg/dL Total Bilirubin (0.2-1.3) mg/dL AST (14-36) U/L ALT (9-52) U/L Alkaline Phosphatase (38-126) U/L Total Protein (6.3-8.2) g/dL Albumin (3.5-5.0) g/dL Amylase (30-110) U/L Lipase (23-300) U/L Urine Color Yellow Urine Appearance Clear (Clear) Urine pH 6.5 (5.0-8.0) Ur Specific [place] 1.015 (1.001-1.035) Urine Protein 3+ H (Negative) Urine Glucose (UA) Negative (Negative) Urine Ketones Negative (Negative) Urine Blood Negative (Negative) Urine Nitrite Negative (Negative) Urine Bilirubin Negative (Negative) Urine Urobilinogen <2.0 (<2.0) mg/dL Ur Leukocyte Esterase Negative (Negative) Urine RBC 1 (0-5) /hpf Urine WBC <1 (0-5) /hpf Ur Squamous Epith Cells 2 (0-4) /hpf Urine Mucus Rare H (None) /hpf Urine HCG, Qual (Not Detectd) Disposition <Mary Kaur - Last Filed: 08/15/18 19:56> Is patient prescribed a controlled substance at d/c from ED?: No Time of Disposition: 22:24 <Cesia Solorio - Last Filed: 08/16/18 04:05> Clinical Impression: Abdominal pain Disposition: Left Against Medical Advice Condition: Stable Instructions (If sedation given, give patient instructions): Abdominal Pain (ED) Referrals: Janki Weiner MD [Primary Care Provider] - 1-2 days
[2018-08-15 18:28] LABS: ALT 27 U/L (9-52); AST 25 U/L (14-36); Alkaline Phosphatase 81 U/L (38-126); Amylase 59 U/L (30-110); Anion Gap 6 mmol/L; Blood Urea Nitrogen 12 mg/dL (7-17); Calcium 9.6 mg/dL (8.4-10.2); Carbon Dioxide 36 mmol/L (22-30); Chloride 96 mmol/L (98-107); Glucose 205 mg/dL (74-99); Lipase 307 U/L (23-300); MCV 98.9 fL (80.0-100.0); Platelet Count 437 k/uL (150-450); Potassium 4.8 mmol/L (3.5-5.1); Sodium 138 mmol/L (137-145); Total Bilirubin 0.5 mg/dL (0.2-1.3); Total Protein 6.7 g/dL (6.3-8.2)
[2018-08-15] MEDS ORDERED: MORPHINE SULFATE 4 MG/ML SYRINGE IVP STA (18:53)
--- NOTE | 2018-08-15 19:38 | US ---
EXAMINATION TYPE: US transvaginal DATE OF EXAM: 08/15/2018 COMPARISON: NONE CLINICAL HISTORY: 33-year-old female Pain. TECHNIQUE: Transvaginal. Date of LMP: 07/31/18 FINDINGS: EXAM MEASUREMENTS: Uterus: 11.9 x 3.0 x 4.2 cm Endometrial Stripe: Very limited assessment. It is estimated at 2.0 cm. However, the exam is very caro ited and this measurement may not be accurate. Right Ovary: not seen due to obesity and overlying bowel gas Left Ovary: not seen due to obesity and overlying bowel gas NATURAL HISTORY COLLECTIONS CURATOR NOTES: Morbidly obese patient, unable to lift her hips, unable to empty her bladder, tech nically difficult scan. 1. Uterus: limited visualization. Cervical nabothian cyst is demonstrated. 2. Endometrium: Questionably thickened 3. Right Ovary: not seen due to obesity and overlying bowel gas 4. Left Ovary: not seen due to obesity and overlying bowel gas 5. Bilateral Adnexa: wnl 6. Posterior cul-de-sac: wnl IMPRESSION: Very limited exam due to patient body habitus and bowel gas. Questionable thickening of the endometri um. Neither ovary could be visualized.
[2018-08-15 19:49] LABS: Appearance,Urine Clear (Clear); Bilirubin,Urine Negative (Negative); Blood,Urine Negative (Negative); Color,Urine Yellow; Glucose,Urine (UA) Negative (Negative); Ketones,Urine Negative (Negative); Leukocyte Esterase,Urine Negative (Negative); Mucus,Urine Rare /hpf; Nitrite,Urine Negative (Negative); PH, Urine 6.5 (5.0-8.0); Protein,Urine 3+ (Negative); RBC,Urine 1 /hpf (0-5); Specific Gravity,Urine 1.015 (1.001-1.035); Squamous Epithelial Cell,Urine 2 /hpf (0-4); Urobilinogen,Urine <2.0 mg/dL (<2.0); WBC,Urine <1 /hpf (0-5)
[2018-08-15 22:36] VITALS: BP 130/75
[2018-08-15 22:38] VITALS: PULSE 99; RESP 16; TEMP 98.3
== END 2018-08-15 22:37 | disposition left against medical advice (07) ==
LOC: EC 17:36
DX: R10.84 Generalized abdominal pain (principal); E66.01 Morbid (severe) obesity due to excess calories; Z68.44 Body mass index [BMI] 60.0-69.9, adult; J45.909 Unspecified asthma, uncomplicated; E11.9 Type 2 diabetes mellitus without complications; M79.7 Fibromyalgia; I10 Essential (primary) hypertension; M19.90 Unspecified osteoarthritis, unspecified site; G47.30 Sleep apnea, unspecified; Z99.89 Dependence on other enabling machines and devices; F20.9 Schizophrenia, unspecified; F41.9 Anxiety disorder, unspecified; F17.200 Nicotine dependence, unspecified, uncomplicated; Z79.51 Long term (current) use of inhaled steroids; Z79.84 Long term (current) use of oral hypoglycemic drugs; Z79.899 Other long term (current) drug therapy; Z91.040 Latex allergy status; Z88.8 Allergy status to other drugs, medicaments and biological substances; Z90.49 Acquired absence of other specified parts of digestive tract; Z53.29 Procedure and treatment not carried out because of patient's decision for other reasons
CPT/HCPCS: 36415; 80053; 82150; 83690; 85025; 81001; 81025; 76830; 99284; 96374; 96376; 96361; J2270

== ENCOUNTER → 2018-08-26 | Outpatient (CLI) | payer OTHER | END | disposition home or self-care (01) | LOC: LABWHC1 14:09 | PROVIDERS: ATTEND Family Medicine | DX: K52.9 Noninfective gastroenteritis and colitis, unspecified (principal) | CPT/HCPCS: 87324 ==

== ENCOUNTER 2019-01-09 10:26 | Emergency (ER) | payer OTHER ==
[2019-01-09 10:57] VITALS: RESP 18
[2019-01-09] MEDS ORDERED: ACETAMINOPHEN TAB 500 MG TAB PO STA (11:02)
--- NOTE | 2019-01-09 11:07 | ED ---
Psych HPI - General Chief Complaint: Psychiatric Symptoms Stated Complaint: Abd Pain/Petition Time Seen by Provider: 01/09/19 10:34 Source: patient, police, EMS Mode of arrival: EMS - History of Present Illness Initial Comments: Patient is a 33-year-old female presenting to the emergency department via police escort secondary to a petition. Patient is also complaining of lower abdominal pain. Patient is unwilling to give a lot of information about her belly pain. Patient states she does not want to speak to me. Patient states pain started a little bit last night and into today. Patient is bleeding and thinks she is on her menstrual cycle, however she also states that "she thinks she is having a baby." Patient denies suicidal or homicidal thoughts at this time. Patient denies fever, chills, nausea, vomiting, diarrhea. Upon arrival to ER, vital signs are stable. - Related Data Home Medications Medication Instructions Recorded Confirmed Acetaminophen Tab [Tylenol] 1,000 mg PO BID PRN 02/04/17 01/09/19 Methocarbamol [Robaxin] 500 mg PO TID 06/30/18 01/09/19 glipiZIDE [Glucotrol] 5 mg PO TID 06/30/18 01/09/19 risperiDONE MICROSPHERES 50 mg IM Q14D 06/30/18 01/09/19 [RisperDAL CONSTA] Insulin Glargine,Hum.rec.anlog 20 unit SQ DAILY 01/09/19 01/09/19 [Basaglar Kwikpen U-100] buPROPion XL [Wellbutrin Xl] 150 mg PO DAILY 01/09/19 01/09/19 metFORMIN HCL 500 mg PO DAILY 01/09/19 01/09/19 Allergies Allergy/AdvReac Type Severity Reaction Status Date / Time aripiprazole [From Abilify] Allergy Severe STATES Verified 01/09/19 10:54 UNABLE TO TALK OR CHEW. "SEIZED UP" latex Allergy Unknown diff Verified 01/09/19 10:54 breathing Review of Systems ROS Statement: Those systems with pertinent positive or pertinent negative responses have been documented in the HPI. ROS Other: All systems not noted in ROS Statement are negative. Past Medical History Past Medical History: Asthma, Chest Pain / Angina, Diabetes Mellitus, Fibromyalg ia, Hypertension, Osteoarthritis (OA), Sleep Apnea/CPAP/BIPAP Additional Past Medical History / Comment(s): Patient was born with one kidney, migraines, no meds for BP, morbid obesity History of Any Multi-Drug Resistant Organisms: None Reported, C-DIFF Date of last positivie culture/infection: 2018 Past Surgical History: Cholecystectomy, Orthopedic Surgery, Tonsillectomy, Tubal Ligation Additional Past Surgical History / Comment(s): jama foot surgery, left knee arthroscopy, Past Anesthesia/Blood Transfusion Reactions: No Reported Reaction Past Psychological History: Anxiety, Schizophrenia Smoking Status: Current every day smoker Past Alcohol Use History: None Reported Past Drug Use History: None Reported - Past Family History Mother Family Medical History: No Reported History General Exam - General Exam Comments Initial Comments: GENERAL: Obese, disheveled appearance. HEAD: Atraumatic, normocephalic. EYES: Pupils equal round and reactive to light, extraocular movements intact, sclera anicteric, conjunctiva are normal. ENT: Moist mucous membranes. Pt declined further ENT exam. NECK: Normal range of motion, supple without lymphadenopathy or JVD. LUNGS: Breath sounds clear to auscultation bilaterally and equal. No wheezes rales or rhonchi. HEART: Regular rate and rhythm without murmurs, rubs or gallops. ABDOMEN: Patient refused abdominal exam. : Deferred, currently on menstrual cycle EXTREMITIES: Normal range of motion, no pitting. No clubbing or cyanosis. NEUROLOGICAL: Cranial nerves II through XII grossly intact. Normal speech, normal gait. PSYCH: Normal mood, normal affect. SKIN: Warm, Dry, normal turgor, no rashes or lesions noted. Limitations: no limitations Course Vital Signs 01/09/19 10:50 Temperature 97.2 F L Pulse Rate 92 Respiratory 18 Rate Blood Pressure 134/86 O2 Sat by Pulse 98 Oximetry Medical Decision Making - Medical Decision Making Patient is a 33-year-old female presenting via police escort for petition as well as lower abdominal pain. Patient is very uncooperative and unwilling to answer majority my questions. Upon arrival to ER, vital signs are stable. Patient is refusing abdominal exam. States her pain started last night and is continuing today. Patient is currently on her menstrual cycle but states "she thinks she is having a baby". CBC is within normal limits, CMP shows glucose of 343, CO2 is 30 there is no gap. Acetone negative. UA shows 4+ glucose, 1+ k etones, large amount of blood. Urine hCG is not detected. Urine tox is negative. Patient was started on 1 L of fluids and given sliding scale. Patient was evaluated by EPS nurse Chanda. Patient will be transferred out to [facility]. Patient is agreement with this plan. Petition completed by Dr. Sharma. - Lab Data Result diagrams: 01/09/19 11:15 01/09/19 11:15 Lab Results 01/09/19 01/09/19 01/09/19 Range/Units 11:15 11:15 11:15 WBC 11.8 H (3.8-10.6) k/uL RBC 4.36 (3.80-5.40) m/uL Hgb 14.0 (11.4-16.0) gm/dL Hct 42.8 (34.0-46.0) % MCV 98.0 (80.0-100.0) fL MCH 32.0 (25.0-35.0) pg MCHC 32.7 (31.0-37.0) g/dL RDW 15.4 (11.5-15.5) % Plt Count 360 (150-450) k/uL Neutrophils % 72 % Lymphocytes % 20 % Monocytes % 3 % Eosinophils % 2 % Basophils % 2 % Neutrophils # 8.5 H (1.3-7.7) k/uL Lymphocytes # 2.4 (1.0-4.8) k/uL Monocytes # 0.3 (0-1.0) k/uL Eosinophils # 0.3 (0-0.7) k/uL Basophils # 0.2 (0-0.2) k/uL Sodium 135 L (137-145) mmol/L Potassium 4.5 (3.5-5.1) mmol/L Chloride 95 L (98-107) mmol/L Carbon Dioxide 30 (22-30) mmol/L Anion Gap 10 mmol/L BUN 16 (7-17) mg/dL Creatinine 0.82 (0.52-1.04) mg/dL Est GFR (CKD-EPI)AfAm >90 (>60 ml/min/1.73 sqM) Est GFR (CKD-EPI)NonAf >90 (>60 ml/min/1.73 sqM) Glucose 343 H (74-99) mg/dL POC Glucose (mg/dL) (75-99) mg/dL POC Glu Software Design Analyst ID Calcium 8.8 (8.4-10.2) mg/dL Total Bilirubin 0.4 (0.2-1.3) mg/dL AST 31 (14-36) U/L ALT 24 (9-52) U/L Alkaline Phosphatase 126 (38-126) U/L Total Protein 6.5 (6.3-8.2) g/dL Albumin 3.6 (3.5-5.0) g/dL Urine Color Urine Appearance (Clear) Urine pH (5.0-8.0) Ur Specific [place] (1.001-1.035) Urine Protein (Negative) Urine Glucose (UA) (Negative) Urine Ketones (Negative) Urine Blood (Negative) Urine Nitrite (Negative) Urine Bilirubin (Negative) Urine Urobilinogen (<2.0) mg/dL Ur Leukocyte Esterase (Negative) Urine RBC (0-5) /hpf Urine WBC (0-5) /hpf Urine Mucus (None) /hpf Urine HCG, Qual (Not Detectd) Urine Opiates Screen (NotDetected) Ur Oxycodone Screen (NotDetected) Urine Methadone Screen (NotDetected) Ur Propoxyphene Screen (NotDetected) Ur Barbiturates Screen (NotDetected) U Tricyclic Antidepress (NotDetected) Ur Phencyclidine Scrn (NotDetected) Ur Amphetamines Screen (NotDetected) U Methamphetamines Scrn (NotDetected) U Benzodiazepines Scrn (NotDetected) Urine Cocaine Screen (NotDetected) U Marijuana (THC) Screen (NotDetected) Serum Alcohol <10 mg/dL Acetone, Qual Negative (Negative) 01/09/19 01/09/19 01/09/19 Range/Units 11:20 11:20 13:55 WBC (3.8-10.6) k/uL RBC (3.80-5.40) m/uL Hgb (11.4-16.0) gm/dL Hct (34.0-46.0) % MCV (80.0-100.0) fL MCH (25.0-35.0) pg MCHC (31.0-37.0) g/dL RDW (11.5-15.5) % Plt Count (150-450) k/uL Neutrophils % % Lymphocytes % % Monocytes % % Eosinophils % % Basophils % % Neutrophils # (1.3-7.7) k/uL Lymphocytes # (1.0-4.8) k/uL Monocytes # (0-1.0) k/uL Eosinophils # (0-0.7) k/uL Basophils # (0-0.2) k/uL Sodium (137-145) mmol/L Potassium (3.5-5.1) mmol/L Chloride (98-107) mmol/L Carbon Dioxide (22-30) mmol/L Anion Gap mmol/L BUN (7-17) mg/dL Creatinine (0.52-1.04) mg/dL Est GFR (CKD-EPI)AfAm (>60 ml/min/1.73 sqM) Est GFR (CKD-EPI)NonAf (>60 ml/min/1.73 sqM) Glucose (74-99) mg/dL POC Glucose (mg/dL) 309 H (75-99) mg/dL POC Glu Software Design Analyst ID [email or web address] Calcium (8.4-10.2) mg/dL Total Bilirubin (0.2-1.3) mg/dL AST (14-36) U/L ALT (9-52) U/L Alkaline Phosphatase (38-126) U/L Total Protein (6.3-8.2) g/dL Albumin (3.5-5.0) g/dL Urine Color Yellow Urine Appearance Clear (Clear) Urine pH 6.5 (5.0-8.0) Ur Specific [place] 1.024 (1.001-1.035) Urine Protein 3+ H (Negative) Urine Glucose (UA) 4+ H (Negative) Urine Ketones 1+ H (Negative) Urine Blood Large H (Negative) Urine Nitrite Negative (Negative) Urine Bilirubin Negative (Negative) Urine Urobilinogen <2.0 (<2.0) mg/dL Ur Leukocyte Esterase Negative (Negative) Urine RBC >182 H (0-5) /hpf Urine WBC 13 H (0-5) /hpf Urine Mucus Rare H (None) /hpf Urine HCG, Qual Not Detected (Not Detectd) Urine Opiates Screen Not Detected (NotDetected) Ur Oxycodone Screen Not Detected (NotDetected) Urine Methadone Screen Not Detected (NotDetected) Ur Propoxyphene Screen Not Detected (NotDetected) Ur Barbiturates Screen Not Detected (NotDetected) U Tricyclic Antidepress Not Detected (NotDetected) Ur Phencyclidine Scrn Not Detected (NotDetected) Ur Amphetamines Screen Not Detected (NotDetected) U Methamphetamines Scrn Not Detected (NotDetected) U Benzodiazepines Scrn Not Detected (NotDetected) Urine Cocaine Screen Not Detected (NotDetected) U Marijuana (THC) Screen Not Detected (NotDetected) Serum Alcohol mg/dL Acetone, Qual (Negative) 01/09/19 Range/Units 17:01 WBC (3.8-10.6) k/uL RBC (3.80-5.40) m/uL Hgb (11.4-16.0) gm/dL Hct (34.0-46.0) % MCV (80.0-100.0) fL MCH (25.0-35.0) pg MCHC (31.0-37.0) g/dL RDW (11.5-15.5) % Plt Count (150-450) k/uL Neutrophils % % Lymphocytes % % Monocytes % % Eosinophils % % Basophils % % Neutrophils # (1.3-7.7) k/uL Lymphocytes # (1.0-4.8) k/uL Monocytes # (0-1.0) k/uL Eosinophils # (0-0.7) k/uL Basophils # (0-0.2) k/uL Sodium (137-145) mmol/L Potassium (3.5-5.1) mmol/L Chloride (98-107) mmol/L Carbon Dioxide (22-30) mmol/L Anion Gap mmol/L BUN (7-17) mg/dL Creatinine (0.52-1.04) mg/dL Est GFR (CKD-EPI)AfAm (>60 ml/min/1.73 sqM) Est GFR (CKD-EPI)NonAf (>60 ml/min/1.73 sqM) Glucose (74-99) mg/dL POC Glucose (mg/dL) 268 H (75-99) mg/dL POC Glu Software Design Analyst ID Nuha Quiroz Calcium (8.4-10.2) mg/dL Total Bilirubin (0.2-1.3) mg/dL AST (14-36) U/L ALT (9-52) U/L Alkaline Phosphatase (38-126) U/L Total Protein (6.3-8.2) g/dL Albumin (3.5-5.0) g/dL Urine Color Urine Appearance (Clear) Urine pH (5.0-8.0) Ur Specific [place] (1.001-1.035) Urine Protein (Negative) Urine Glucose (UA) (Negative) Urine Ketones (Negative) Urine Blood (Negative) Urine Nitrite (Negative) Urine Bilirubin (Negative) Urine Urobilinogen (<2.0) mg/dL Ur Leukocyte Esterase (Negative) Urine RBC (0-5) /hpf Urine WBC (0-5) /hpf Urine Mucus (None) /hpf Urine HCG, Qual (Not Detectd) Urine Opiates Screen (NotDetected) Ur Oxycodone Screen (NotDetected) Urine Methadone Screen (NotDetected) Ur Propoxyphene Screen (NotDetected) Ur Barbiturates Screen (NotDetected) U Tricyclic Antidepress (NotDetected) Ur Phencyclidine Scrn (NotDetected) Ur Amphetamines Screen (NotDetected) U Methamphetamines Scrn (NotDetected) U Benzodiazepines Scrn (NotDetected) Urine Cocaine Screen (NotDetected) U Marijuana (THC) Screen (NotDetected) Serum Alcohol mg/dL Acetone, Qual (Negative) Disposition Clinical Impression: Hyperglycemia due to type 2 diabetes mellitus, Schizoaffective disorder Disposition: TRANSFER TO PSYCH HOSP/UNIT Condition: Stable Is patient prescribed a controlled substance at d/c from ED?: No Referrals: Janki Weiner MD [Primary Care Provider] - 1-2 days - Out of Hospital Transfer - Req. Specs Out of Hospital Transfer - Requested Specifics: Psychiatric Non-ICU ([facility]
[2019-01-09 11:33] LABS: Basophils # (A) 0.2 k/uL (0-0.2); Basophils % (A) 2 %; Eosinophils # (A) 0.3 k/uL (0-0.7); Eosinophils % (A) 2 %; HCT 42.8 % (34.0-46.0); Lymphocytes # (A) 2.4 k/uL (1.0-4.8); Lymphocytes % (A) 20 %; MCHC 32.7 g/dL (31.0-37.0); Mean Platelet Volume 7.3; Monocytes # (A) 0.3 k/uL (0-1.0); Monocytes % (A) 3 %; Neutrophils # (A) 8.5 k/uL (1.3-7.7); Neutrophils % (A) 72 %; Platelet Count 360 k/uL (150-450); RBC 4.36 m/uL (3.80-5.40); RDW 15.4 % (11.5-15.5); WBC 11.8 k/uL (3.8-10.6)
[2019-01-09 11:40] LABS: Appearance,Urine Clear (Clear); Bilirubin,Urine Negative (Negative); Blood,Urine Large (Negative); Color,Urine Yellow; Glucose,Urine (UA) 4+ (Negative); Ketones,Urine 1+ (Negative); Leukocyte Esterase,Urine Negative (Negative); Mucus,Urine Rare /hpf; Nitrite,Urine Negative (Negative); PH, Urine 6.5 (5.0-8.0); Protein,Urine 3+ (Negative); RBC,Urine >182 /hpf (0-5); Specific Gravity,Urine 1.024 (1.001-1.035); Urobilinogen,Urine <2.0 mg/dL (<2.0)
[2019-01-09 11:52] LABS: Amphetamine Screen,Urine Not Detected (NotDetected); Barbiturate Screen,Urine Not Detected (NotDetected); Benzodiazepines Screen,Urine Not Detected (NotDetected); Cocaine Screen,Urine Not Detected (NotDetected); Methadone Screen, Urine Not Detected (NotDetected); Opiate Screen,Urine Not Detected (NotDetected); Oxycodone Screen, Urine Not Detected (NotDetected); Phencyclidine Screen,Urine Not Detected (NotDetected); Tricyclic Antidepressant,Urine Not Detected (NotDetected); Urn Cannabinoid Scrn Not Detected (NotDetected)
[2019-01-09 11:53] LABS: ALT 24 U/L (9-52); AST 31 U/L (14-36); African American GFR (CKD) >90 (>60 ml/min/1.73 sqM); Albumin 3.6 g/dL (3.5-5.0); Alcohol <10 mg/dL; Alkaline Phosphatase 126 U/L (38-126); Anion Gap 10 mmol/L; Blood Urea Nitrogen 16 mg/dL (7-17); Calcium 8.8 mg/dL (8.4-10.2); Carbon Dioxide 30 mmol/L (22-30); Chloride 95 mmol/L (98-107); Glucose 343 mg/dL (74-99); Potassium 4.5 mmol/L (3.5-5.1); Sodium 135 mmol/L (137-145); Total Bilirubin 0.4 mg/dL (0.2-1.3); Total Protein 6.5 g/dL (6.3-8.2)
[2019-01-09] MEDS ORDERED: SODIUM CHLORIDE 0.9% 1,000 ML IV STA (12:08)
[2019-01-09 13:56] LABS: Glucose,Whole Blood 309 mg/dL (75-99)
[2019-01-09] MEDS ORDERED: INSULIN ASPART (NovoLOG) 100 UNIT/ML VIAL SQ ONE (14:04)
[2019-01-09 17:02] LABS: Glucose,Whole Blood 268 mg/dL (75-99)
[2019-01-09] MEDS ORDERED: INSULIN ASPART (NovoLOG) 100 UNIT/ML VIAL SQ SCH (17:30)
[2019-01-09 18:36] VITALS: BP 167/95; PULSE 87; TEMP 98
[2019-01-09] MEDS ORDERED: LORazepam 2 MG/ML INJ IM STA (19:39)
== END 2019-01-09 19:50 ==
LOC: EC 10:26
DX: F25.9 Schizoaffective disorder, unspecified (principal); E11.65 Type 2 diabetes mellitus with hyperglycemia; R10.30 Lower abdominal pain, unspecified; R82.4 Acetonuria; R31.9 Hematuria, unspecified; M79.7 Fibromyalgia; F17.200 Nicotine dependence, unspecified, uncomplicated; M19.90 Unspecified osteoarthritis, unspecified site; F41.9 Anxiety disorder, unspecified; I10 Essential (primary) hypertension; E66.01 Morbid (severe) obesity due to excess calories; G47.30 Sleep apnea, unspecified; Q60.0 Renal agenesis, unilateral; Z91.040 Latex allergy status; Z79.4 Long term (current) use of insulin; Z79.899 Other long term (current) drug therapy; Z88.8 Allergy status to other drugs, medicaments and biological substances; Z99.89 Dependence on other enabling machines and devices; Z68.44 Body mass index [BMI] 60.0-69.9, adult; Z90.49 Acquired absence of other specified parts of digestive tract; Z98.51 Tubal ligation status
CPT/HCPCS: 36415; 80053; 82009; 85025; 81001; 81025; 80306; 87086; 99285; 96372; 96360; G0480; J2060; 80320

== ENCOUNTER 2019-04-15 10:22 | Emergency (ER) | payer OTHER ==
[2019-04-15 11:28] LABS: Amphetamine Screen,Urine Not Detected (NotDetected); Barbiturate Screen,Urine Not Detected (NotDetected); Benzodiazepines Screen,Urine Not Detected (NotDetected); Cocaine Screen,Urine Not Detected (NotDetected); Methadone Screen, Urine Not Detected (NotDetected); Opiate Screen,Urine Not Detected (NotDetected); Oxycodone Screen, Urine Not Detected (NotDetected); Phencyclidine Screen,Urine Not Detected (NotDetected); Tricyclic Antidepressant,Urine Not Detected (NotDetected); Urn Cannabinoid Scrn Not Detected (NotDetected)
[2019-04-15 12:15] LABS: Glucose,Whole Blood 174 mg/dL (75-99)
--- NOTE | 2019-04-15 12:21 | ED ---
General Adult HPI - General Chief complaint: Psychiatric Symptoms Stated complaint: test, cramping Time Seen by Provider: 04/15/19 10:49 Source: patient, RN notes reviewed Mode of arrival: ambulatory Limitations: no limitations - History of Present Illness Initial comments: 34-year-old female with a past medical history of schizophrenia, anxiety presents to the emergency department with legal guardian and [facility] railways assistant. [facility] today as she was incarcerated for assaulting someone. According to railways assistant and legal guardian she is acting erratically. They state that they believe she is in one of her schizophrenia episodes. States she has not been taking her medications as directed and is just getting Invega injections.Patient has no other complaints at this time including shortness of breath, chest pain, abdominal pain, nausea or vomiting, headache, or visual changes. - Related Data Home Medications Medication Instructions Recorded Confirmed Insulin Glargine,Hum.rec.anlog 20 unit SQ DAILY 01/09/19 04/15/19 [Basaglar Kwikpen U-100] metFORMIN HCL 250 mg PO BID 01/09/19 04/15/19 Albuterol Sulfate [Proventil Hfa] 2 puff INHALATION RT-Q6H PRN 04/15/19 04/15/19 DULoxetine HCL [Cymbalta] 60 mg PO DAILY 04/15/19 04/15/19 Paliperidone IM [Invega Sustenna] 234 mg IM Q28D 04/15/19 04/15/19 Allergies Allergy/AdvReac Type Severity Reaction Status Date / Time aripiprazole [From Abilify] Allergy Severe STATES Verified 04/15/19 11:10 UNABLE TO TALK OR CHEW. "SEIZED UP" latex AdvReac Unknown diff Verified 04/15/19 11:10 breathing Review of Systems ROS Statement: Those systems with pertinent positive or pertinent negative responses have been documented in the HPI. ROS Other: All systems not noted in ROS Statement are negative. Past Medical History Past Medical History: Asthma, Chest Pain / Angina, Diabetes Mellitus, Fibromyalgia, Hypertension, Osteoarthritis (OA), Sleep Apnea/CPAP/BIPAP Additional Past Medical History / Comment(s): Patient was born with one kidney, migraines, no meds for BP, morbid obesity History of Any Multi-Drug Resistant Organisms: None Reported, C-DIFF Date of last positivie culture/infection: 2019 Past Surgical History: Cholecystectomy, Orthopedic Surgery, Tonsillectomy, Tubal Ligation Additional Past Surgical History / Comment(s): jama foot surgery, left knee arthroscopy, Past Anesthesia/Blood Transfusion Reactions: No Reported Reaction Past Psychological History: Anxiety, Schizophrenia Smoking Status: Current every day smoker Past Alcohol Use History: None Reported Past Drug Use History: None Reported - Past Family History Mother Family Medical History: No Reported History General Exam Limitations: no limitations General appearance: alert, in no apparent distress Head exam: Present: atraumatic, normocephalic, normal inspection Eye exam: Present: normal appearance, PERRL, EOMI. Absent: scleral icterus, conjunctival injection, periorbital swelling ENT exam: Present: normal exam, mucous membranes moist Neck exam: Present: normal inspection, full ROM. Absent: tenderness, meningismus, lymphadenopathy Respiratory exam: Present: normal lung sounds bilaterally. Absent: respiratory distress, wheezes, rales, rhonchi, stridor Cardiovascular Exam: Present: regular rate, normal rhythm, normal heart sounds. Absent: systolic murmur, diastolic murmur, rubs, gallop, clicks Course Vital Signs 04/15/19 10:33 Temperature 98 F Pulse Rate 104 H Respiratory 20 Rate Blood Pressure 136/93 O2 Sat by Pulse 96 Oximetry Medical Decision Making - Medical Decision Making Patient was evaluated by EPS, they are recommending inpatient management. will be transferred to another facility. - Lab Data Lab Results 04/15/19 04/15/19 04/15/19 Range/Units 11:00 11:00 11:00 POC Glucose (mg/dL) (75-99) mg/dL POC Glu Financial Data Analyst ID Urine Color Yellow Urine Appearance Cloudy H (Clear) Urine pH 6.5 (5.0-8.0) Ur Specific [place] 1.011 (1.001-1.035) Urine Protein 3+ H (Negative) Urine Glucose (UA) 3+ H (Negative) Urine Ketones Negative (Negative) Urine Blood Negative (Negative) Urine Nitrite Negative (Negative) Urine Bilirubin Negative (Negative) Urine Urobilinogen <2.0 (<2.0) mg/dL Ur Leukocyte Esterase Negative (Negative) Urine RBC 1 (0-5) /hpf Urine WBC 3 (0-5) /hpf Ur Squamous Epith Cells 11 H (0-4) /hpf Urine Bacteria Few H (None) /hpf Hyaline Casts 1 (0-2) /lpf Urine HCG, Qual Not Detected (Not Detectd) Urine Opiates Screen Not Detected (NotDetected) Ur Oxycodone Screen Not Detected (NotDetected) Urine Methadone Screen Not Detected (NotDetected) Ur Propoxyphene Screen Not Detected (NotDetected) Ur Barbiturates Screen Not Detected (NotDetected) U Tricyclic Antidepress Not Detected (NotDetected) Ur Phencyclidine Scrn Not Detected (NotDetected) Ur Amphetamines Screen Not Detected (NotDetected) U Methamphetamines Scrn Not Detected (NotDetected) U Benzodiazepines Scrn Not Detected (NotDetected) Urine Cocaine Screen Not Detected (NotDetected) U Marijuana (THC) Screen Not Detected (NotDetected) 04/15/19 Range/Units 12:11 POC Glucose (mg/dL) 174 H (75-99) mg/dL POC Glu Financial Data Analyst ID Nuha Quiroz Urine Color Urine Appearance (Clear) Urine pH (5.0-8.0) Ur Specific [place] (1.001-1.035) Urine Protein (Negative) Urine Glucose (UA) (Negative) Urine Ketones (Negative) Urine Blood (Negative) Urine Nitrite (Negative) Urine Bilirubin (Negative) Urine Urobilinogen (<2.0) mg/dL Ur Leukocyte Esterase (Negative) Urine RBC (0-5) /hpf Urine WBC (0-5) /hpf Ur Squamous Epith Cells (0-4) /hpf Urine Bacteria (None) /hpf Hyaline Casts (0-2) /lpf Urine HCG, Qual (Not Detectd) Urine Opiates Screen (NotDetected) Ur Oxycodone Screen (NotDetected) Urine Methadone Screen (NotDetected) Ur Propoxyphene Screen (NotDetected) Ur Barbiturates Screen (NotDetected) U Tricyclic Antidepress (NotDetected) Ur Phencyclidine Scrn (NotDetected) Ur Amphetamines Screen (NotDetected) U Methamphetamines Scrn (NotDetected) U Benzodiazepines Scrn (NotDetected) Urine Cocaine Screen (NotDetected) U Marijuana (THC) Screen (NotDetected) Disposition Clinical Impression: Schizoaffective disorder Disposition: TRANSFER TO PSYCH HOSP/UNIT Condition: Fair Is patient prescribed a controlled substance at d/c from ED?: No Referrals: Janki Weiner MD [Primary Care Provider] - 1-2 days Time of Disposition: 14:50
[2019-04-15 13:40] LABS: Appearance,Urine Cloudy (Clear); Bacteria,Urine Few /hpf; Bilirubin,Urine Negative (Negative); Blood,Urine Negative (Negative); Color,Urine Yellow; Glucose,Urine (UA) 3+ (Negative); Hyaline Casts,Urine 1 /lpf (0-2); Ketones,Urine Negative (Negative); Leukocyte Esterase,Urine Negative (Negative); Nitrite,Urine Negative (Negative); PH, Urine 6.5 (5.0-8.0); Protein,Urine 3+ (Negative); RBC,Urine 1 /hpf (0-5); Specific Gravity,Urine 1.011 (1.001-1.035); Squamous Epithelial Cell,Urine 11 /hpf (0-4); Urobilinogen,Urine <2.0 mg/dL (<2.0); WBC,Urine 3 /hpf (0-5)
[2019-04-15] MEDS ORDERED: ALBUTEROL INHALER 60 PUFF/8 GM INHALER INHALATION PRN (14:49)
[2019-04-15 15:45] LABS: Glucose,Whole Blood 177 mg/dL (75-99)
[2019-04-15] MEDS ORDERED: INSULIN ASPART (NovoLOG) 100 UNIT/ML VIAL SQ SCH (17:30)
[2019-04-15 18:32] LABS: Glucose,Whole Blood 180 mg/dL (75-99)
[2019-04-15 20:04] VITALS: BP 140/74; PULSE 70; RESP 18; TEMP 98.7
[2019-04-15] MEDS ORDERED: metFORMIN 500 MG TAB PO SCH (21:00)
[2019-04-16] MEDS ORDERED: DULoxetine HCL 60 MG CAPSULE.DR PO SCH (09:00)
[2019-04-16] MEDS ORDERED: INSULIN GLARGINE HUM REC ANLOG 20 UNIT SQ SCH (09:00)
== END 2019-04-15 20:04 ==
LOC: EC 10:22 → EEVIPCON 10:22 → EC 20:04
DX: F20.9 Schizophrenia, unspecified (principal); J45.909 Unspecified asthma, uncomplicated; E11.9 Type 2 diabetes mellitus without complications; M79.7 Fibromyalgia; G47.30 Sleep apnea, unspecified; Q60.0 Renal agenesis, unilateral; F41.9 Anxiety disorder, unspecified; F17.200 Nicotine dependence, unspecified, uncomplicated; Z88.8 Allergy status to other drugs, medicaments and biological substances; Z91.040 Latex allergy status; Z79.4 Long term (current) use of insulin; Z79.899 Other long term (current) drug therapy; Z99.89 Dependence on other enabling machines and devices
CPT/HCPCS: 36415; 80306; 81001; 81025; 82075; 99285

== ENCOUNTER 2019-07-28 12:44 | Emergency (ER) | payer OTHER ==
--- NOTE | 2019-07-28 13:22 | ED ---
Psych HPI - General Source: family Mode of arrival: ambulatory <Mary Kaur - Last Filed: 07/28/19 20:05> <Aroldo Sanchez - Last Filed: 07/29/19 09:38> - General Chief Complaint: Psychiatric Symptoms Stated Complaint: Anxiety Time Seen by Provider: 07/28/19 13:10 - History of Present Illness Initial Comments: 34-year-old female with history of bipolar schizophrenia diabetes insulin- dependent, hypertension who recently was hospitalized approximately 2 weeks ago for MRSA pneumonia and was placed on a ventilator ,she was also diagnosed at that time with MRSA of the urine. Patient mother states the patient has been very paranoid thinking someone is going to attack her and her car for the past 3 weeks. She states the patient usually resides in a detention however has been living with her for the past3 weeks since her discharge from the hospital. Patient has not had fever or cough per mother. She was not sent home on antibiot ics but was placed on home oxygen. Patient on arrival is pacing, she appears paranoid. She denies chest pain, SOB, nausea, vomiting, diarrhea. Patient has no additional complaints. Patient denies suicidal or homicidal ideations. Patient mother states she has not slept well the past 3-4 nights. Remaining ROS (-). Upon arrival pt BP, HR elevated. Slightly hypoxic at 91%, refusing oxygen--pacing. Morbidly obese. (Mary Kaur) - Related Data Home Medications Medication Instructions Recorded Confirmed metFORMIN HCL 500 mg PO BID 01/09/19 07/28/19 Cariprazine HCl [Vraylar] 6 mg PO HS 07/28/19 07/28/19 Docusate [Colace] 200 mg PO HS 07/28/19 07/28/19 Ferrous Sulfate [Feosol] 325 mg PO DAILY 07/28/19 07/28/19 Insulin Lispro [Admelog] 14 unit SQ 0800,1200,1700 07/28/19 07/28/19 Insulin Lispro [Admelog] 30 unit PO HS 07/28/19 07/28/19 Allergies Allergy/AdvReac Type Severity Reaction Status Date / Time aripiprazole [From Abilify] Allergy Severe STATES Verified 07/28/19 13:02 UNABLE TO TALK OR CHEW. "SEIZED UP" latex AdvReac Unknown diff Verified 07/28/19 13:02 breathing Review of Systems ROS Other: All systems not noted in ROS Statement are negative. <Mary Kaur Keyla - Last Filed: 07/28/19 20:05> ROS Other: All systems not noted in ROS Statement are negative. <LauraAroldo Niranjan - Last Filed: 07/29/19 09:38> ROS Statement: Those systems with pertinent positive or pertinent negative responses have been documented in the HPI. Past Medical History Past Medical History: Asthma, Chest Pain / Angina, Diabetes Mellitus, Fibromyalgia, Hypertension, Osteoarthritis (OA), Sleep Apnea/CPAP/BIPAP Additional Past Medical History / Comment(s): Patient was born with one kidney, migraines, no meds for BP, morbid obesity History of Any Multi-Drug Resistant Organisms: None Reported, C-DIFF Date of last positivie culture/infection: 2018 Past Surgical History: Cholecystectomy, Orthopedic Surgery, Tonsillectomy, Tubal Ligation Additional Past Surgical History / Comment(s): jama foot surgery, left knee arthroscopy, Past Anesthesia/Blood Transfusion Reactions: No Reported Reaction Past Psychological History: Anxiety, Schizophrenia Smoking Status: Current every day smoker Past Alcohol Use History: None Reported Past Drug Use History: None Reported - Past Family History Mother Family Medical History: No Reported History <Mary Kaur - Last Filed: 07/28/19 20:05> General Exam Limitations: physical limitation <Mary Kaur - Last Filed: 07/28/19 20:05> - General Exam Comments Initial Comments: General: The patient is awake and alert Eye: +3 mm pupils are equal, round and reactive to light, extra-ocular movements are intact. No nystagmus. There is normal conjunctiva bilaterally. No signs of icterus. Ears, nose, mouth and throat: There are moist mucous membranes and no oral lesions. Neck: The neck is supple, there is no tenderness or JVD. Cardiovascular: There is a regular rate and rhythm. No murmur, rub or gallop is appreciated. Respiratory: Lungs are clear to auscultation, respirations are non-labored, breath sounds are equal. No wheezes, stridor, rales, or rhonchi. Gastrointestinal: Soft, non-distended, non-tender abdomen without masses or organomegaly noted. There is no rebound or guarding present. Musculoskeletal: Normal ROM, no tenderness. Strength 5/5. Sensation intact. Radial pulses equal bilaterally 2+. Neurological: A&O x 3. CN II-XII intact, There are no obvious motor or sensory deficits. Coordination appears grossly intact. Speech is normal. Skin: Skin is warm and dry and no rashes or lesions are noted. Psychiatric: Cooperative, patient has paranoid thoughts, pacing (Mary Kaur) Course <Mary Kaur - Last Filed: 07/28/19 20:05> Vital Signs 07/28/19 07/28/19 07/28/19 12:59 15:02 20:30 Temperature 98.8 F Pulse Rate 121 H 82 106 H Respiratory 20 20 20 Rate Blood Pressure 151/95 145/81 165/83 O2 Sat by Pulse 91 L 94 L 95 Oximetry 07/29/19 07/29/19 07/29/19 00:00 04:17 07:28 Temperature 97.9 F 98.0 F Pulse Rate 101 H 99 Respiratory 19 18 Rate Blood Pressure 167/94 170/103 O2 Sat by Pulse 94 L 94 L 95 Oximetry 07/29/19 07:51 Temperature Pulse Rate Respiratory Rate Blood Pressure O2 Sat by Pulse 90 L Oximetry - Reevaluation(s) Reevaluation #1: 07/28/19 20:[address] Ponce at shift change. (Mary Kaur) Medical Decision Making - Lab Data Result diagrams: 07/28/19 14:00 07/28/19 14:00 <Mary Kaur - Last Filed: 07/28/19 20:05> - Lab Data Result diagrams: 07/28/19 14:00 07/28/19 14:00 <Aroldo Sanchez - Last Filed: 07/29/19 09:38> - Medical Decision Making 34yo female with history of schizophrenia with recent medication change presenting to the ER today for cc of paranoid thoughts-brought in by mom. Patient petitioned. Certified. Patient medically clears, once patient settled HR improved. Patient has no focalized somatic complaints. Patient EPS evaluated, recommended admission, however will be transferred due to weight limits on the floor. Dr. Ponce certified patient and is agreeable to care plan. (Mary Kaur) She care signed out from previous shift physician. Patient is a 35-year-old female presents with psychiatric symptoms. Patient is currently on home oxygen for lung disease. She was admitted to the hospital and was diagnosed with pneumonia. She is discharged of the time with home oxygen. There is a petition filled out by mother. Patient was pending transfer for inpatient admission. After several hours mother requested that patient be reevaluated for possibility of being discharged. Patient reevaluated at bedside. She is pleasant and cooperative and well-appearing. EPS was recontacted. Patient was evaluated at bedside by psychiatrist Dr. Allen and deemed clear for discharge. EPS nurse will be at bedside to plan and discussed discharge planning. Patient not showing any psychotic features at bedside. Mother and patient are agreeable to disposition. Patient will be discharged. (Aroldo Sanchez) - Lab Data Lab Results 07/28/19 07/28/19 07/28/19 Range/Units 13:50 13:50 14:00 WBC 10.4 (3.8-10.6) k/uL RBC 4.24 (3.80-5.40) m/uL Hgb 13.7 (11.4-16.0) gm/dL Hct 40.5 (34.0-46.0) % MCV 95.6 (80.0-100.0) fL MCH 32.4 (25.0-35.0) pg MCHC 33.9 (31.0-37.0) g/dL RDW 14.8 (11.5-15.5) % Plt Count 497 H (150-450) k/uL Neutrophils % 64 % Lymphocytes % 28 % Monocytes % 4 % Eosinophils % 2 % Basophils % 0 % Neutrophils # 6.6 (1.3-7.7) k/uL Lymphocytes # 2.9 (1.0-4.8) k/uL Monocytes # 0.4 (0-1.0) k/uL Eosinophils # 0.2 (0-0.7) k/uL Basophils # 0.0 (0-0.2) k/uL Sodium (137-145) mmol/L Potassium (3.5-5.1) mmol/L Chloride (98-107) mmol/L Carbon Dioxide (22-30) mmol/L Anion Gap mmol/L BUN (7-17) mg/dL Creatinine (0.52-1.04) mg/dL Est GFR (CKD-EPI)AfAm (>60 ml/min/1.73 sqM) Est GFR (CKD-EPI)NonAf (>60 ml/min/1.73 sqM) Glucose (74-99) mg/dL POC Glucose (mg/dL) (75-99) mg/dL POC Glu Radar Technician ID Calcium (8.4-10.2) mg/dL Total Bilirubin (0.2-1.3) mg/dL AST (14-36) U/L ALT (4-34) U/L Alkaline Phosphatase (38-126) U/L Total Protein (6.3-8.2) g/dL Albumin (3.5-5.0) g/dL Urine Color Light Yellow Urine Appearance Clear (Clear) Urine pH 6.0 (5.0-8.0) Ur Specific [place] 1.008 (1.001-1.035) Urine Protein 3+ H (Negative) Urine Glucose (UA) Trace H (Negative) Urine Ketones Negative (Negative) Urine Blood Negative (Negative) Urine Nitrite Negative (Negative) Urine Bilirubin Negative (Negative) Urine Urobilinogen <2.0 (<2.0) mg/dL Ur Leukocyte Esterase Negative (Negative) Urine RBC 1 (0-5) /hpf Urine WBC 2 (0-5) /hpf Ur Squamous Epith Cells 1 (0-4) /hpf Urine Bacteria Rare H (None) /hpf Urine HCG, Qual Not Detected (Not Detectd) Urine Opiates Screen Not Detected (NotDetected) Ur Oxycodone Screen Not Detected (NotDetected) Urine Methadone Screen Not Detected (NotDetected) Ur Propoxyphene Screen Not Detected (NotDetected) Ur Barbiturates Screen Not Detected (NotDetected) U Tricyclic Antidepress Not Detected (NotDetected) Ur Phencyclidine Scrn Not Detected (NotDetected) Ur Amphetamines Screen Not Detected (NotDetected) U Methamphetamines Scrn Not Detected (NotDetected) U Benzodiazepines Scrn Not Detected (NotDetected) Urine Cocaine Screen Not Detected (NotDetected) U Marijuana (THC) Screen Not Detected (NotDetected) Coronavirus (PCR) (Not Detectd) 07/28/19 07/28/19 07/28/19 Range/Units 14:00 14:30 19:24 WBC (3.8-10.6) k/uL RBC (3.80-5.40) m/uL Hgb (11.4-16.0) gm/dL Hct (34.0-46.0) % MCV (80.0-100.0) fL MCH (25.0-35.0) pg MCHC (31.0-37.0) g/dL RDW (11.5-15.5) % Plt Count (150-450) k/uL Neutrophils % % Lymphocytes % % Monocytes % % Eosinophils % % Basophils % % Neutrophils # (1.3-7.7) k/uL Lymphocytes # (1.0-4.8) k/uL Monocytes # (0-1.0) k/uL Eosinophils # (0-0.7) k/uL Basophils # (0-0.2) k/uL Sodium 135 L (137-145) mmol/L Potassium 4.0 (3.5-5.1) mmol/L Chloride 95 L (98-107) mmol/L Carbon Dioxide 26 (22-30) mmol/L Anion Gap 14 mmol/L BUN 9 (7-17) mg/dL Creatinine 0.85 (0.52-1.04) mg/dL Est GFR (CKD-EPI)AfAm >90 (>60 ml/min/1.73 sqM) Est GFR (CKD-EPI)NonAf >90 (>60 ml/min/1.73 sqM) Glucose 227 H (74-99) mg/dL POC Glucose (mg/dL) 205 H (75-99) mg/dL POC Glu Radar Technician ID Maren Moser A Calcium 9.6 (8.4-10.2) mg/dL Total Bilirubin 0.8 (0.2-1.3) mg/dL AST 33 (14-36) U/L ALT 23 (4-34) U/L Alkaline Phosphatase 64 (38-126) U/L Total Protein 7.5 (6.3-8.2) g/dL Albumin 4.6 (3.5-5.0) g/dL Urine Color Urine Appearance (Clear) Urine pH (5.0-8.0) Ur Specific [place] (1.001-1.035) Urine Protein (Negative) Urine Glucose (UA) (Negative) Urine Ketones (Negative) Urine Blood (Negative) Urine Nitrite (Negative) Urine Bilirubin (Negative) Urine Urobilinogen (<2.0) mg/dL Ur Leukocyte Esterase (Negative) Urine RBC (0-5) /hpf Urine WBC (0-5) /hpf Ur Squamous Epith Cells (0-4) /hpf Urine Bacteria (None) /hpf Urine HCG, Qual (Not Detectd) Urine Opiates Screen (NotDetected) Ur Oxycodone Screen (NotDetected) Urine Methadone Screen (NotDetected) Ur Propoxyphene Screen (NotDetected) Ur Barbiturates Screen (NotDetected) U Tricyclic Antidepress (NotDetected) Ur Phencyclidine Scrn (NotDetected) Ur Amphetamines Screen (NotDetected) U Methamphetamines Scrn (NotDetected) U Benzodiazepines Scrn (NotDetected) Urine Cocaine Screen (NotDetected) U Marijuana (THC) Screen (NotDetected) Coronavirus (PCR) Not Detected (Not Detectd) 07/29/19 Range/Units 08:02 WBC (3.8-10.6) k/uL RBC (3.80-5.40) m/uL Hgb (11.4-16.0) gm/dL Hct (34.0-46.0) % MCV (80.0-100.0) fL MCH (25.0-35.0) pg MCHC (31.0-37.0) g/dL RDW (11.5-15.5) % Plt Count (150-450) k/uL Neutrophils % % Lymphocytes % % Monocytes % % Eosinophils % % Basophils % % Neutrophils # (1.3-7.7) k/uL Lymphocytes # (1.0-4.8) k/uL Monocytes # (0-1.0) k/uL Eosinophils # (0-0.7) k/uL Basophils # (0-0.2) k/uL Sodium (137-145) mmol/L Potassium (3.5-5.1) mmol/L Chloride (98-107) mmol/L Carbon Dioxide (22-30) mmol/L Anion Gap mmol/L BUN (7-17) mg/dL Creatinine (0.52-1.04) mg/dL Est GFR (CKD-EPI)AfAm (>60 ml/min/1.73 sqM) Est GFR (CKD-EPI)NonAf (>60 ml/min/1.73 sqM) Glucose (74-99) mg/dL POC Glucose (mg/dL) 219 H (75-99) mg/dL POC Glu Radar Technician ID Shantel Dillard Calcium (8.4-10.2) mg/dL Total Bilirubin (0.2-1.3) mg/dL AST (14-36) U/L ALT (4-34) U/L Alkaline Phosphatase (38-126) U/L Total Protein (6.3-8.2) g/dL Albumin (3.5-5.0) g/dL Urine Color Urine Appearance (Clear) Urine pH (5.0-8.0) Ur Specific [place] (1.001-1.035) Urine Protein (Negative) Urine Glucose (UA) (Negative) Urine Ketones (Negative) Urine Blood (Negative) Urine Nitrite (Negative) Urine Bilirubin (Negative) Urine Urobilinogen (<2.0) mg/dL Ur Leukocyte Esterase (Negative) Urine RBC (0-5) /hpf Urine WBC (0-5) /hpf Ur Squamous Epith Cells (0-4) /hpf Urine Bacteria (None) /hpf Urine HCG, Qual (Not Detectd) Urine Opiates Screen (NotDetected) Ur Oxycodone Screen (NotDetected) Urine Methadone Screen (NotDetected) Ur Propoxyphene Screen (NotDetected) Ur Barbiturates Screen (NotDetected) U Tricyclic Antidepress (NotDetected) Ur Phencyclidine Scrn (NotDetected) Ur Amphetamines Screen (NotDetected) U Methamphetamines Scrn (NotDetected) U Benzodiazepines Scrn (NotDetected) Urine Cocaine Screen (NotDetected) U Marijuana (THC) Screen (NotDetected) Coronavirus (PCR) (Not Detectd) Disposition <Mary Kaur L - Last Filed: 07/28/19 20:05> Is patient prescribed a controlled substance at d/c from ED?: No Time of Disposition: 09:38 <Aroldo Sanchez - Last Filed: 07/29/19 09:38> Clinical Impression: Psychosis Disposition: HOME SELF-CARE Condition: Good Instructions (If sedation given, give patient instructions): Psychotic Disorder (ED) Additional Instructions: Please follow discharge planning instructions by EPS nurse Referrals: Janki Weiner MD [STAFF PHYSICIAN] - 1-2 days
[2019-07-28 14:19] LABS: Basophils % (A) 0 %; Eosinophils # (A) 0.2 k/uL (0-0.7); Eosinophils % (A) 2 %; HCT 40.5 % (34.0-46.0); HGB 13.7 gm/dL (11.4-16.0); Lymphocytes # (A) 2.9 k/uL (1.0-4.8); Lymphocytes % (A) 28 %; MCH 32.4 pg (25.0-35.0); MCHC 33.9 g/dL (31.0-37.0); MCV 95.6 fL (80.0-100.0); Mean Platelet Volume 7.4; Monocytes # (A) 0.4 k/uL (0-1.0); Monocytes % (A) 4 %; Neutrophils # (A) 6.6 k/uL (1.3-7.7); Neutrophils % (A) 64 %; Platelet Count 497 k/uL (150-450); RBC 4.24 m/uL (3.80-5.40); RDW 14.8 % (11.5-15.5); WBC 10.4 k/uL (3.8-10.6)
[2019-07-28 14:22] LABS: Appearance,Urine Clear (Clear); Bacteria,Urine Rare /hpf; Bilirubin,Urine Negative (Negative); Blood,Urine Negative (Negative); Color,Urine Light Yellow; Glucose,Urine (UA) Trace (Negative); Ketones,Urine Negative (Negative); Leukocyte Esterase,Urine Negative (Negative); Nitrite,Urine Negative (Negative); Protein,Urine 3+ (Negative); RBC,Urine 1 /hpf (0-5); Specific Gravity,Urine 1.008 (1.001-1.035); Squamous Epithelial Cell,Urine 1 /hpf (0-4); Urobilinogen,Urine <2.0 mg/dL (<2.0); WBC,Urine 2 /hpf (0-5)
[2019-07-28 14:28] LABS: ALT 23 U/L (4-34); AST 33 U/L (14-36); African American GFR (CKD) >90 (>60 ml/min/1.73 sqM); Albumin 4.6 g/dL (3.5-5.0); Alkaline Phosphatase 64 U/L (38-126); Anion Gap 14 mmol/L; Blood Urea Nitrogen 9 mg/dL (7-17); Calcium 9.6 mg/dL (8.4-10.2); Carbon Dioxide 26 mmol/L (22-30); Chloride 95 mmol/L (98-107); Glucose 227 mg/dL (74-99); Non-African American GFR(CKD) >90 (>60 ml/min/1.73 sqM); Sodium 135 mmol/L (137-145); Total Bilirubin 0.8 mg/dL (0.2-1.3); Total Protein 7.5 g/dL (6.3-8.2)
[2019-07-28 14:35] LABS: Amphetamine Screen,Urine Not Detected (NotDetected); Barbiturate Screen,Urine Not Detected (NotDetected); Benzodiazepines Screen,Urine Not Detected (NotDetected); Cocaine Screen,Urine Not Detected (NotDetected); Methadone Screen, Urine Not Detected (NotDetected); Opiate Screen,Urine Not Detected (NotDetected); Oxycodone Screen, Urine Not Detected (NotDetected); Phencyclidine Screen,Urine Not Detected (NotDetected); Tricyclic Antidepressant,Urine Not Detected (NotDetected); Urn Cannabinoid Scrn Not Detected (NotDetected)
--- NOTE | 2019-07-28 14:52 | XR ---
EXAMINATION TYPE: XR chest 2V DATE OF EXAM: 07/28/2019 COMPARISON: Chest CT September 16, 2016. Prior chest x-ray July 25, 2010 HISTORY: Previous pneumonia with cough. TECHNIQUE: Frontal and lateral views of the chest are obtained. FINDINGS: Suboptimal secondary to patient's large body habitus. Lateral view almost nondiagnostic. Th ere is no suspicious focal air space opacity, pleural effusion, or pneumothorax seen. The cardiac si lhouette size is enlarged. The osseous structures are intact. IMPRESSION: Suboptimal study, cardiomegaly without focal acute airspace opacity seen.
[2019-07-28 19:26] LABS: Glucose,Whole Blood 205 mg/dL (75-99)
[2019-07-28] MEDS: INSULIN ASPART (NovoLOG) 100 UNIT/ML VIAL SQ SCH (19:36)
[2019-07-28] MEDS ORDERED: DOCUSATE 100 MG CAP PO SCH (21:00)
[2019-07-28] MEDS ORDERED: ACETAMINOPHEN TAB 500 MG TAB PO STA (21:39)
[2019-07-28] MEDS: metFORMIN 500 MG TAB PO SCH (21:42)
[2019-07-29] MEDS ORDERED: ACETAMINOPHEN TAB 500 MG TAB PO STA (06:19)
[2019-07-29 07:37] VITALS: RESP 18; TEMP 98
[2019-07-29 08:03] LABS: Glucose,Whole Blood 219 mg/dL (75-99)
[2019-07-29] MEDS: metFORMIN 500 MG TAB PO SCH (08:31)
[2019-07-29] MEDS: INSULIN ASPART (NovoLOG) 100 UNIT/ML VIAL SQ SCH (08:32)
[2019-07-29] MEDS ORDERED: FERROUS SULFATE 325 MG TAB PO SCH (09:00)
[2019-07-29 09:55] VITALS: BP 156/99; PULSE 100
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
== END 2019-07-29 10:00 | disposition home or self-care (01) ==
LOC: EC 12:44
DX: Z03.818 Encounter for observation for suspected exposure to other biological agents ruled out (principal); F20.0 Paranoid schizophrenia; E66.01 Morbid (severe) obesity due to excess calories; I25.2 Old myocardial infarction; E11.9 Type 2 diabetes mellitus without complications; G47.30 Sleep apnea, unspecified; Q60.0 Renal agenesis, unilateral; J45.909 Unspecified asthma, uncomplicated; F17.200 Nicotine dependence, unspecified, uncomplicated; Z79.4 Long term (current) use of insulin; Z79.899 Other long term (current) drug therapy; Z88.8 Allergy status to other drugs, medicaments and biological substances; Z91.040 Latex allergy status; Z99.89 Dependence on other enabling machines and devices; Z68.44 Body mass index [BMI] 60.0-69.9, adult; Z99.81 Dependence on supplemental oxygen
CPT/HCPCS: 36415; 71046; 80053; 80306; 81001; 81025; 82075; 85025; 87040; 87635; 99284

== ENCOUNTER 2019-09-12 12:40 | Emergency (ER) | payer OTHER ==
[2019-09-12 12:48] VITALS: RESP 20; TEMP 98.4
[2019-09-12 13:29] LABS: Basophils % (A) 0 %; Eosinophils # (A) 0.2 k/uL (0-0.7); Eosinophils % (A) 3 %; HCT 40.2 % (34.0-46.0); HGB 12.8 gm/dL (11.4-16.0); Lymphocytes # (A) 1.8 k/uL (1.0-4.8); Lymphocytes % (A) 19 %; MCH 32.4 pg (25.0-35.0); MCHC 31.7 g/dL (31.0-37.0); Macrocytosis Slight; Mean Platelet Volume 7.2; Monocytes # (A) 0.3 k/uL (0-1.0); Monocytes % (A) 3 %; Neutrophils # (A) 7.1 k/uL (1.3-7.7); Neutrophils % (A) 74 %; Platelet Count 303 k/uL (150-450); RBC 3.94 m/uL (3.80-5.40); RDW 15.3 % (11.5-15.5); WBC 9.6 k/uL (3.8-10.6)
[2019-09-12 13:43] LABS: Amphetamine Screen,Urine Not Detected (NotDetected); Barbiturate Screen,Urine Not Detected (NotDetected); Benzodiazepines Screen,Urine Not Detected (NotDetected); Cocaine Screen,Urine Not Detected (NotDetected); HCG,Qualitative Serum Not Detected; Methadone Screen, Urine Not Detected (NotDetected); Opiate Screen,Urine Not Detected (NotDetected); Oxycodone Screen, Urine Not Detected (NotDetected); Phencyclidine Screen,Urine Not Detected (NotDetected); Tricyclic Antidepressant,Urine Not Detected (NotDetected); Urn Cannabinoid Scrn Not Detected (NotDetected)
[2019-09-12 13:44] LABS: African American GFR (CKD) >90 (>60 ml/min/1.73 sqM); Alcohol <10 mg/dL; Anion Gap 8 mmol/L; Blood Urea Nitrogen 20 mg/dL (7-17); Calcium 9.9 mg/dL (8.4-10.2); Carbon Dioxide 34 mmol/L (22-30); Chloride 95 mmol/L (98-107); Glucose 163 mg/dL (74-99); Non-African American GFR(CKD) >90 (>60 ml/min/1.73 sqM); Potassium 4.4 mmol/L (3.5-5.1); Sodium 137 mmol/L (137-145)
--- NOTE | 2019-09-12 13:44 | ED ---
General Adult HPI - General Source: patient, EMS, RN notes reviewed, old records reviewed Mode of arrival: EMS Limitations: no limitations <Camille Ramirez - Last Filed: 09/12/19 15:49> <Lester Vivar - Last Filed: 09/12/19 18:00> - General Chief complaint: Back Pain/Injury Stated complaint: Pain - History of Present Illness Initial comments: Patient is a 34-year-old female presents emergency room with multiple complaints. Patient states that she was stating that she's had her water break. She states she's been starving. She states she's had a cough. She states that she has having an "nervous breakdown". Patient reportedly has been noncompliant with some of her psychiatric medications. [facility] and stated that she was not . She believes that people are lying to her. Patient has been admitted in the past for EPS evaluation. She does have legal guardian. (Camille Ramirez) - Related Data Home Medications Medication Instructions Recorded Confirmed metFORMIN HCL 500 mg PO BID 01/09/19 07/28/19 Cariprazine HCl [Vraylar] 6 mg PO HS 07/28/19 07/28/19 Docusate [Colace] 200 mg PO HS 07/28/19 07/28/19 Ferrous Sulfate [Feosol] 325 mg PO DAILY 07/28/19 07/28/19 Insulin Lispro [Admelog] 14 unit SQ 0800,1200,1700 07/28/19 07/28/19 Insulin Lispro [Admelog] 30 unit PO HS 07/28/19 07/28/19 Allergies Allergy/AdvReac Type Severity Reaction Status Date / Time aripiprazole [From Abilify] Allergy Severe STATES Verified 07/28/19 13:02 UNABLE TO TALK OR CHEW. "SEIZED UP" latex AdvReac Unknown diff Verified 07/28/19 13:02 breathing Review of Systems ROS Other: All systems not noted in ROS Statement are negative. <Camille Ramirez - Last Filed: 09/12/19 15:49> ROS Other: All systems not noted in ROS Statement are negative. <Lester Vivar - Last Filed: 09/12/19 18:00> ROS Statement: Those systems with pertinent positive or pertinent negative responses have been documented in the HPI. Past Medical History Past Medical History: Asthma, Chest Pain / Angina, Diabetes Mellitus, Fibromyalgia, Hypertension, Osteoarthritis (OA), Sleep Apnea/CPAP/BIPAP Additional Past Medical History / Comment(s): Patient was born with one kidney, migraines, no meds for BP, morbid obesity History of Any Multi-Drug Resistant Organisms: None Reported, C-DIFF Date of last positivie culture/infection: 2018 Past Surgical History: Cholecystectomy, Orthopedic Surgery, Tonsillectomy, Tubal Ligation Additional Past Surgical History / Comment(s): jama foot surgery, left knee arthroscopy, Past Anesthesia/Blood Transfusion Reactions: No Reported Reaction Past Psychological History: Anxiety, Schizophrenia Smoking Status: Current every day smoker Past Alcohol Use History: None Reported Past Drug Use History: None Reported - Past Family History Mother Family Medical History: No Reported History <Camille Ramirez - Last Filed: 09/12/19 15:49> General Exam Limitations: no limitations General appearance: alert, in no apparent distress Head exam: Present: atraumatic, normocephalic, normal inspection Eye exam: Present: normal appearance, PERRL, EOMI. Absent: scleral icterus, conjunctival injection, periorbital swelling ENT exam: Present: normal exam Neck exam: Present: normal inspection. Absent: tenderness, meningismus, lymphadenopathy Respiratory exam: Present: normal lung sounds bilaterally. Absent: respiratory distress, wheezes, rales, rhonchi, stridor Cardiovascular Exam: Present: regular rate, normal rhythm, normal heart sounds. Absent: systolic murmur, diastolic murmur, rubs, gallop, clicks GI/Abdominal exam: Present: soft, normal bowel sounds. Absent: distended, tenderness, guarding, rebound, rigid Extremities exam: Present: normal inspection, full ROM, normal capillary refill. Absent: tenderness, pedal edema, joint swelling, calf tenderness Back exam: Present: normal inspection Neurological exam: Present: alert, oriented X3, CN II-XII intact Psychiatric exam: Present: other (Patient is paranoid that people are going to lie to her about her lab results.). Absent: normal affect (Patient has a flat affect and delusional. Stating that she is and her water broke. No evidence of this on exam.), normal mood Skin exam: Present: warm, dry, intact, normal color. Absent: rash <Camille Ramirez - Last Filed: 09/12/19 15:49> - General Exam Comments Initial Comments: 34 yo femmale, delusional. (Camille Ramirez) Course <Lester Vivar - Last Filed: 09/12/19 18:00> Vital Signs 09/12/19 09/12/19 09/12/19 12:41 12:47 13:47 Temperature 98.4 F Pulse Rate 107 H Respiratory 20 20 20 Rate Blood Pressure 157/99 O2 Sat by Pulse 95 Oximetry 09/12/19 09/12/19 14:47 15:50 Temperature Pulse Rate 101 H 101 H Respiratory 20 20 Rate Blood Pressure 143/89 143/89 O2 Sat by Pulse 96 96 Oximetry - Reevaluation(s) Reevaluation #1: 09/12/19 17:59 Patient is medically clear for psych and seen and evaluated psychiatry here in the ER (Lester Vivar) Medical Decision Making - Lab Data Result diagrams: 09/12/19 13:10 09/12/19 13:10 - Radiology Data Radiology results: report reviewed <Camille Ramirez - Last Filed: 09/12/19 15:49> - Lab Data Result diagrams: 09/12/19 13:10 09/12/19 13:10 <Lester Vivar - Last Filed: 09/12/19 18:00> - Medical Decision Making 34-year-old female presenting to emergency murmurs had multiple complaints but main concern was that she is and her water broke. She is delusional as Patient is not at this time. Unaware of this patient's baseline mental status with delusions. Attempting to contact EPS and clinical guarding. She is medically clear at this time for evaluation due to her multiple complaints of a cough and abdominal pain. Patient will be evaluated by EPS at this time. Patient patient's case discussed with Dr. Vivar, who will follow up with EPS evaluation. (Camille Ramirez) 34 female DF for acute psychosis history of discharged to care of family (Lester Murphy) - Lab Data Lab Results 06/07/20 06/07/20 06/07/20 Range/Units 13:10 13:10 13:10 WBC 9.6 (3.8-10.6) k/uL RBC 3.94 (3.80-5.40) m/uL Hgb 12.8 (11.4-16.0) gm/dL Hct 40.2 (34.0-46.0) % MCV 102.1 H D (80.0-100.0) fL MCH 32.4 (25.0-35.0) pg MCHC 31.7 (31.0-37.0) g/dL RDW 15.3 (11.5-15.5) % Plt Count 303 (150-450) k/uL Neutrophils % 74 % Lymphocytes % 19 % Monocytes % 3 % Eosinophils % 3 % Basophils % 0 % Neutrophils # 7.1 (1.3-7.7) k/uL Lymphocytes # 1.8 (1.0-4.8) k/uL Monocytes # 0.3 (0-1.0) k/uL Eosinophils # 0.2 (0-0.7) k/uL Basophils # 0.0 (0-0.2) k/uL Macrocytosis Slight Sodium 137 (137-145) mmol/L Potassium 4.4 (3.5-5.1) mmol/L Chloride 95 L (98-107) mmol/L Carbon Dioxide 34 H (22-30) mmol/L Anion Gap 8 mmol/L BUN 20 H (7-17) mg/dL Creatinine 0.80 (0.52-1.04) mg/dL Est GFR (CKD-EPI)AfAm >90 (>60 ml/min/1.73 sqM) Est GFR (CKD-EPI)NonAf >90 (>60 ml/min/1.73 sqM) Glucose 163 H (74-99) mg/dL Calcium 9.9 (8.4-10.2) mg/dL HCG, Qual Not Detected Urine HCG, Qual Not Detected (Not Detectd) Urine Opiates Screen (NotDetected) Ur Oxycodone Screen (NotDetected) Urine Methadone Screen (NotDetected) Ur Propoxyphene Screen (NotDetected) Ur Barbiturates Screen (NotDetected) U Tricyclic Antidepress (NotDetected) Ur Phencyclidine Scrn (NotDetected) Ur Amphetamines Screen (NotDetected) U Methamphetamines Scrn (NotDetected) U Benzodiazepines Scrn (NotDetected) Urine Cocaine Screen (NotDetected) U Marijuana (THC) Screen (NotDetected) Serum Alcohol <10 mg/dL 09/12/19 Range/Units 13:10 WBC (3.8-10.6) k/uL RBC (3.80-5.40) m/uL Hgb (11.4-16.0) gm/dL Hct (34.0-46.0) % MCV (80.0-100.0) fL MCH (25.0-35.0) pg MCHC (31.0-37.0) g/dL RDW (11.5-15.5) % Plt Count (150-450) k/uL Neutrophils % % Lymphocytes % % Monocytes % % Eosinophils % % Basophils % % Neutrophils # (1.3-7.7) k/uL Lymphocytes # (1.0-4.8) k/uL Monocytes # (0-1.0) k/uL Eosinophils # (0-0.7) k/uL Basophils # (0-0.2) k/uL Macrocytosis Sodium (137-145) mmol/L Potassium (3.5-5.1) mmol/L Chloride (98-107) mmol/L Carbon Dioxide (22-30) mmol/L Anion Gap mmol/L BUN (7-17) mg/dL Creatinine (0.52-1.04) mg/dL Est GFR (CKD-EPI)AfAm (>60 ml/min/1.73 sqM) Est GFR (CKD-EPI)NonAf (>60 ml/min/1.73 sqM) Glucose (74-99) mg/dL Calcium (8.4-10.2) mg/dL HCG, Qual Urine HCG, Qual (Not Detectd) Urine Opiates Screen Not Detected (NotDetected) Ur Oxycodone Screen Not Detected (NotDetected) Urine Methadone Screen Not Detected (NotDetected) Ur Propoxyphene Screen Not Detected (NotDetected) Ur Barbiturates Screen Not Detected (NotDetected) U Tricyclic Antidepress Not Detected (NotDetected) Ur Phencyclidine Scrn Not Detected (NotDetected) Ur Amphetamines Screen Not Detected (NotDetected) U Methamphetamines Scrn Not Detected (NotDetected) U Benzodiazepines Scrn Not Detected (NotDetected) Urine Cocaine Screen Not Detected (NotDetected) U Marijuana (THC) Screen Not Detected (NotDetected) Serum Alcohol mg/dL - Radiology Data Chest x-ray shows mild cardiomegaly with lungs are clear. Pleural spaces are clear. (Camille Ramirez) Disposition <Camille Ramirez - Last Filed: 09/12/19 15:49> Is patient prescribed a controlled substance at d/c from ED?: No <Lester Vivar - Last Filed: 09/12/19 18:00> Clinical Impression: Schizoaffective disorder Disposition: HOME SELF-CARE Condition: Fair Instructions (If sedation given, give patient instructions): Brief Psychotic D isorder (ED), Psychotic Disorder (ED) Referrals: [facility] [Primary Care Provider] - 1-2 days
[2019-09-12 13:45] LABS: MCV 102.1 fL (80.0-100.0)
--- NOTE | 2019-09-12 14:09 | XR ---
EXAMINATION TYPE: XR chest 2V DATE OF EXAM: 09/12/2019 HISTORY: cough. REFERENCE: Previous study dated 07/28/2019. FINDINGS: The heart is mildly enlarged. The lungs are clear. Pleural spaces are clear. IMPRESSION: CARDIOMEGALY AND 52 WITH PATIENT'S AGE.
[2019-09-12 18:04] VITALS: BP 146/94; PULSE 100
== END 2019-09-12 18:11 | disposition home or self-care (01) ==
LOC: EC 12:40
DX: F25.9 Schizoaffective disorder, unspecified (principal); R01.1 Cardiac murmur, unspecified; F22 Delusional disorders; R05 Cough; R10.9 Unspecified abdominal pain; I25.2 Old myocardial infarction; M79.7 Fibromyalgia; I10 Essential (primary) hypertension; G47.30 Sleep apnea, unspecified; E11.9 Type 2 diabetes mellitus without complications; F17.200 Nicotine dependence, unspecified, uncomplicated; E66.01 Morbid (severe) obesity due to excess calories; Q60.0 Renal agenesis, unilateral; Z79.4 Long term (current) use of insulin; Z79.899 Other long term (current) drug therapy; Z88.8 Allergy status to other drugs, medicaments and biological substances; Z91.048 Other nonmedicinal substance allergy status; Z91.19 Patient's noncompliance with other medical treatment and regimen; Z99.89 Dependence on other enabling machines and devices; Z68.44 Body mass index [BMI] 60.0-69.9, adult; Z90.49 Acquired absence of other specified parts of digestive tract
CPT/HCPCS: 36415; 80048; 85025; 81025; 84703; 80306; 71046; 99284; G0480; 80320

== ENCOUNTER 2020-03-31 17:58 | Emergency (ER) | payer OTHER ==
[2020-03-31 18:08] VITALS: RESP 18
[2020-03-31 18:27] LABS: Appearance,Urine Cloudy (Clear); Bacteria,Urine Rare /hpf; Bilirubin,Urine Negative (Negative); Blood,Urine Negative (Negative); Color,Urine Yellow; Glucose,Urine (UA) 3+ (Negative); Hyaline Casts,Urine 1 /lpf (0-2); Ketones,Urine Negative (Negative); Leukocyte Esterase,Urine Negative (Negative); Mucus,Urine Rare /hpf; Nitrite,Urine Negative (Negative); PH, Urine 6.5 (5.0-8.0); Protein,Urine 3+ (Negative); RBC,Urine 1 /hpf (0-5); Specific Gravity,Urine 1.022 (1.001-1.035); Squamous Epithelial Cell,Urine 2 /hpf (0-4); WBC,Urine 1 /hpf (0-5)
[2020-03-31] MEDS ORDERED: CEPHALEXIN 500 MG CAP PO STA (18:31)
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
[2020-03-31] MEDS ORDERED: INSULIN ASPART (NovoLOG) 100 UNIT/ML VIAL SQ SCH (21:00)
[2020-03-31 21:24] VITALS: BP 111/60; PULSE 110; TEMP 98.1
== END 2020-03-31 21:50 | disposition home or self-care (01) ==
LOC: EC 17:58
DX: F25.9 Schizoaffective disorder, unspecified (principal); R00.0 Tachycardia, unspecified; F41.9 Anxiety disorder, unspecified; G47.33 Obstructive sleep apnea (adult) (pediatric); E11.9 Type 2 diabetes mellitus without complications; F17.200 Nicotine dependence, unspecified, uncomplicated; Z79.4 Long term (current) use of insulin; Z99.89 Dependence on other enabling machines and devices; Z79.899 Other long term (current) drug therapy; Z88.8 Allergy status to other drugs, medicaments and biological substances; Z91.040 Latex allergy status; Z90.49 Acquired absence of other specified parts of digestive tract
CPT/HCPCS: 81001; 81025; 82075; 99285